=== PATIENT | male | born 1960 | race Caucasian/White ===

== ENCOUNTER 2019-03-15 16:12 | Observation (INO) ==
[2019-03-15 16:55] LABS: Bilirubin,Urine Negative (Negative); Blood,Urine Large (Negative); Clarity,Urine Cloudy (Clear); Color,Urine Dark Yellow (Yellow); Glucose,Urine (UA) Normal (Normal); Ketones,Urine Negative (Negative); Leukocyte Esterase,Urine Small (Negative); Nitrite,Urine Negative (Negative); Protein,Urine >=300 mg/dL (Neg-Trace); Specific Gravity,Urine 1.026 (1.010-1.025); Urobilinogen,Urine Normal (Normal)
[2019-03-15 16:57] LABS: Bacteria,Urine None Seen per hpf (None-Few); Hyaline Casts,Urine None Seen per lpf (None-Few); RBC,Urine TNTC per hpf (0-3); Squamous Epithelial Cell,Urine Many per lpf (None-Few); WBC,Urine 15-30 per hpf (0-3)
[2019-03-15 17:10] LABS: Renal Epithelial Cells,Urine Few per hpf (None-Few)
[2019-03-15 17:12] LABS: Basophils % 0.5 %; Eosinophils # 1.6 K/mcL (0.0-0.6); Eosinophils % 20.7 %; Hematocrit 35.2 % (37.5-50.1); Hemoglobin 10.7 g/dL (12.9-16.9); Immature Granulocytes % 0.4 % (0-4); Lymphocytes % 13.3 %; Mean Corpuscular HGB Conc 30.4 g/dL (31.6-35.5); Mean Corpuscular Hemoglobin 29.7 pg (28.0-33.3); Mean Corpuscular Volume 97.8 fL (83.0-100.0); Mean Platelet Volume 9.7 fL (9.4-12.4); Monocytes # 0.7 K/mcL (0.0-1.3); Monocytes % 8.5 %; Neutrophils # 4.3 K/mcL (1.6-8.9); Platelet Count 133 K/mcL (140-400); Segmented Neutrophils % 56.6 %; White Blood Count 7.6 K/mcL (4.3-11.1)
[2019-03-15 17:23] LABS: BUN/Creatinine Ratio 14 (6-26); Blood Urea Nitrogen 19 mg/dL (6-20); Calcium 8.7 mg/dL (8.6-10.3); Carbon Dioxide 23 mEq/L (23-29); Chloride 101 mEq/L (98-107); Glucose 109 mg/dL (70-105); Osmolality,Calculated 283 (280-300); Potassium 4.1 mEq/L (3.5-5.1); Sodium 135 mEq/L (136-145); eGFR For African Americans > 60 (> 60); eGFR For Non-African Americans 56 (> 60)
[2019-03-15 17:44] LABS: Platelet Estimate Slight Decrease (Normal)
[2019-03-15 18:11] LABS: Troponin I < 0.03 ng/mL (< 0.04)
[2019-03-15] MEDS ORDERED: Isovue-370 500 ML BOTTLE IVP ONE (18:34)
[2019-03-15] MEDS ORDERED: 0.9 % Sodium Chloride 1,000 ML IVC ONE (21:46)
[2019-03-16] MEDS ORDERED: Naloxone 0.4 MG/ML INJ IVP PRN (00:52)
[2019-03-16] MEDS ORDERED: Ondansetron 4 MG/2 ML VIAL IVP PRN (00:52)
[2019-03-16] MEDS ORDERED: D5% in Water 1,000 ML IVC PRN (00:56)
[2019-03-16] MEDS ORDERED: *HR* Dextrose 50 % in Water (Syg) 50 ML SYRINGE IVP PRN (00:56)
[2019-03-16] MEDS ORDERED: Dextrose Gel 15 GM/37.5 ML TUBE PO PRN ×2 (00:56)
[2019-03-16] MEDS ORDERED: 0.9 % Sodium Chloride 1,000 ML IVC SCH (01:00)
[2019-03-16] MEDS ORDERED: levoFLOXacin 750 MG/150 ML 750 MG/150 ML BAG IVPB ONE (01:00)
[2019-03-16] MEDS ORDERED: *HR* OxyCODONE Immed Rel 5 MG TABLET PO PRN (03:59)
[2019-03-16 04:51] LABS: Hematocrit 28.5 % (37.5-50.1); Mean Corpuscular HGB Conc 31.2 g/dL (31.6-35.5); Mean Corpuscular Hemoglobin 30.5 pg (28.0-33.3); Mean Corpuscular Volume 97.6 fL (83.0-100.0); Mean Platelet Volume 9.9 fL (9.4-12.4); Platelet Count 118 K/mcL (140-400); Red Blood Count 2.92 M/mcL (4.19-5.50); Red Cell Distribution Width 15.1 % (11.5-14.5); White Blood Count 5.8 K/mcL (4.3-11.1)
[2019-03-16 05:06] LABS: Hemoglobin 8.9 g/dL (12.9-16.9)
[2019-03-16 05:13] LABS: Alanine Aminotransferase 6 Units/L (7-52); Albumin 2.9 g/dL (3.5-5.7); Albumin/Globulin Ratio 0.9 (1.1-2.2); Alkaline Phosphatase 202 Units/L (34-104); Aspartate Amino Transferase 15 Units/L (13-39); BUN/Creatinine Ratio 14 (6-26); Bilirubin,Total 0.5 mg/dL (0.3-1.0); Blood Urea Nitrogen 16 mg/dL (6-20); Calcium 7.9 mg/dL (8.6-10.3); Carbon Dioxide 19 mEq/L (23-29); Chloride 103 mEq/L (98-107); Globulin 3.4 g/dL (2.4-3.5); Glucose 105 mg/dL (70-105); Osmolality,Calculated 278 (280-300); Potassium 3.9 mEq/L (3.5-5.1); Sodium 133 mEq/L (136-145); Total Protein 6.3 g/dL (6.4-8.9); eGFR For African Americans > 60 (> 60); eGFR For Non-African Americans > 60 (> 60)
[2019-03-16 06:02] LABS: Anisocytosis 1+ (Not Present); Eosinophils # 0.4 K/mcL (0.0-0.6); Hypochromasia Present (Not Present); Large Platelets Present (Not Present); Lymphocytes # 0.5 K/mcL (0.6-4.6); Monocytes # 0.2 K/mcL (0.0-1.3); Neutrophils # 4.8 K/mcL (1.6-8.9); Platelet Estimate Normal (Normal)
[2019-03-16] MEDS: Insulin LISPRO 300 UNITS/3 ML VIAL SQ SCH ×2 (07:46→12:09)
[2019-03-16] MEDS ORDERED: amLODIPine 5 MG TABLET PO SCH (09:00)
[2019-03-16] MEDS ORDERED: hydrALAZINE 25 MG TABLET PO SCH (09:00)
[2019-03-16] MEDS ORDERED: Cholecalciferol (D-3) 1,000 UNIT (25MCG) TABLET PO SCH (09:00)
[2019-03-16] MEDS ORDERED: Famotidine 20 MG TABLET PO SCH (09:00)
[2019-03-16] MEDS ORDERED: Aspirin Enteric Coated 81 MG Tablet PO SCH (09:00)
[2019-03-16] MEDS ORDERED: DilTIAZem CD (24hr) 120 MG CAP.ER.24H PO SCH (09:00)
[2019-03-16 10:25] VITALS: BP 127/82
== END 2019-03-16 17:27 | disposition home or self-care (01) ==
LOC: 3ANU 16:12 → EMEROOARM 16:12 → SUATTDRO 22:28 → 3ANU 23:36
PROVIDERS: ADMIT Pediatrics; ATTEND Internal Medicine

== ENCOUNTER 2019-05-23 14:38 | Inpatient (IN) ==
--- NOTE | 2019-05-23 15:34 | Emergency Department Note ---
Disposition Clinical Impression: Renal cell carcinoma Qualifiers: Laterality: left Qualified Code(s): C64.2 - Malignant neoplasm of left kidney, except renal pelvis Disposition: Admitted As Inpatient Condition: Fair Time of Disposition: 19:00 General Adult HPI - General Chief complaint: ED Recheck/Abnormal Lab/Rx Stated complaint: Toe Bleeding Time Seen by Provider: 05/23/19 15:32 Source: patient Limitations: no limitations Nursing Notes Reviewed: Yes Vital Signs Reviewed: Yes - History of Present Illness HPI Narrative: 58-year-old male presents emergency Department concern for right middle toe bleeding. Patient has renal cell carcinoma with metastasis to the skin. Reports that the lesion popped up recently and there was some bleeding from it. He was seen by his doctor who sent him to the fax machine operator who cauterized it. Sent the patient to the emergency department with need for removal of the lesion more morning. Reports that patient needs to have palliative care talk. Patient's states that there was no pulsatile blood, which is bleeding briskly earlier. No fevers and he has good sensation of his foot. Pain Scale: 4 - Related Data Home Medications Medication Instructions Recorded Confirmed Hydralazine HCl 50 mg PO BID 02/11/18 05/23/19 Metoprolol Tartrate [Lopressor] 50 mg PO BID 02/11/18 05/23/19 Ranitidine HCl [Acid Instructional Support Assistant] 150 mg PO DAILY 02/11/18 05/23/19 Simvastatin [Zocor] 40 mg PO HS 02/11/18 05/23/19 Levothyroxine Sodium [Levo-T] 150 mcg PO DAILY 03/15/19 05/23/19 dilTIAZem HCl [Diltiazem HCl] 120 mg PO DAILY 03/16/19 05/23/19 Calcium Carbonate/Vitamin D3 1 tab PO DAILY 05/09/19 05/23/19 [Calcium 600 + Vit D Tablet] Amlodipine Besylate 10 mg PO DAILY 05/23/19 05/23/19 Aspirin [Lo-Dose Aspirin EC] 81 mg PO DAILY 05/23/19 05/23/19 Furosemide [Lasix] 20 mg PO DAILY 05/23/19 05/23/19 Potassium Chloride [K-Tab ER] 20 meq PO DAILY 05/23/19 05/23/19 Allergies Allergy/AdvReac Type Severity Reaction Status Date / Time adhesive tape Allergy Rash Verified 05/23/19 20:51 Penicillins [PCN] Allergy Hives Verified 05/23/19 20:51 All systems ED: reviewed and negative except as stated. Review of Systems: As Per HPI Constitutional: Denies: fever Cardiovascular: Denies: chest pain Respiratory: Denies: dyspnea Gastrointestinal: Denies: abdominal pain, nausea, vomiting Genitourinary: Denies: dysuria Musculoskeletal: Reports: other (Right middle toe discomfort, bleeding) Neurological: Denies: numbness, paresthesias Past Medical History - Past Medical History Attestation: Yes The following information was validated with the patient. Medical history: Reports: cancer, diabetes, GERD, hyperlipidemia, hypertension, thyroid disease, other Surgical history: Reports: other Psychiatric history: Reports: no psych history - Social History Smoking Status: Never smoker Smokeless Tobacco Status: No Alcohol use: Reports: none Drug use: Reports: none Physical Exam - General Limitations: no limitations General appearance: alert, in no apparent distress - Head Head exam: normocephalic - Eye Eye exam: Present: EOMI - ENT ENT exam: mucous membranes moist - Neck Neck exam: Present: trachea midline - Chest Chest inspection: Present: symmetric chest wall rise - Respiratory Respiratory exam: Present: normal lung sounds bilaterally. Absent: respiratory distress, accessory muscle use - Cardiovascular Cardiovascular exam: Present: regular rate, normal rhythm, normal heart sounds - Abdominal Exam Abdominal exam: Present: soft, Non-Tender. Absent: distention, guarding, rebound, rigidity - Extremities Exam Extremities exam: Present: normal capillary refill, other (Patient with lesion of right toe, hemostasis controlled) - Back Exam Back exam: Present: full ROM - Neurological Exam Neurological exam: Present: alert, oriented X3 - Psychiatric Psychiatric exam: Present: normal affect, normal mood - Skin Skin exam: Present: warm, dry Course Vital Signs Temperature 97.8 F 05/23/19 14:41 Pulse Rate 68 05/23/19 14:41 Respiratory Rate 18 05/23/19 14:41 Blood Pressure 140/78 05/23/19 14:41 O2 Sat by Pulse Oximetry 99 05/23/19 14:41 Temperature 98.6 F 05/23/19 20:12 Pulse Rate 102 05/23/19 20:12 Respiratory Rate 14 05/23/19 20:12 Blood Pressure 114/70 05/23/19 20:12 O2 Sat by Pulse Oximetry 97 05/23/19 20:12 Oxygen Delivery Oxygen Delivery Room Air Medical Decision Making - MDM Narrative Medical decision making narrative: Procedure male presents emergency Department concern for lesion of right toe. Hemostasis controlled to the emergency department. We put Surgicel on it. Per podiatry request, patient labs were obtained and patient admitted to hospitalist. Creatinine mildly elevated. Patient is given some fluids. - Lab Data Result diagrams: 05/23/19 16:40 05/23/19 16:40 Lab Results 05/23/19 05/23/19 05/23/19 Range/Units 16:40 16:40 16:40 WBC 9.4 (4.3-11.1) K/mcL RBC 3.69 L (4.19-5.50) M/mcL Hgb 9.9 L (12.9-16.9) g/dL Hct 33.5 L (37.5-50.1) % MCV 90.8 (83.0-100.0) fL MCH 26.8 L (28.0-33.3) pg MCHC 29.6 L (31.6-35.5) g/dL RDW 17.2 H (11.5-14.5) % Plt Count 161 (140-400) K/mcL MPV 11.0 (9.4-12.4) fL PT 13.2 H (9.4-12.1) Seconds INR 1.2 APTT 38.2 H (26.0-36.0) Seconds Sodium 132 L (136-145) mEq/L Potassium 4.4 (3.5-5.1) mEq/L Chloride 98 (98-107) mEq/L Carbon Dioxide 24 (23-29) mEq/L BUN 16 (6-20) mg/dL Creatinine 1.55 H (0.70-1.30) mg/dL Est GFR ( Amer) 57 L (> 60) Est GFR (Non-Af Amer) 47 L (> 60) BUN/Creatinine Ratio 10 (6-26) Glucose 163 H (70-105) mg/dL Calculated Osmolality 279 L (280-300) Calcium 8.7 (8.6-10.3) mg/dL
--- NOTE | 2019-05-23 16:22 | Emergency Department Note ---
Disposition Clinical Impression: Renal cell carcinoma Qualifiers: Laterality: left Qualified Code(s): C64.2 - Malignant neoplasm of left kidney, except renal pelvis Disposition: Admitted As Inpatient Condition: Fair Time of Disposition: 15:30 General Adult HPI - General Chief complaint: ED Recheck/Abnormal Lab/Rx Stated complaint: Toe Bleeding Time Seen by Provider: 05/23/19 15:32 Source: patient Limitations: no limitations Nursing Notes Reviewed: Yes Vital Signs Reviewed: Yes - History of Present Illness Pain Scale: 4 - Related Data Home Medications Medication Instructions Recorded Confirmed Amlodipine Besylate 10 mg PO DAILY 02/11/18 05/23/19 Hydralazine HCl 50 mg PO BID 02/11/18 05/23/19 Metoprolol Tartrate [Lopressor] 50 mg PO BID 02/11/18 05/23/19 Ranitidine HCl [Acid Senior Quantity Surveyor] 150 mg PO QID 02/11/18 05/23/19 Simvastatin [Zocor] 40 mg PO QID 02/11/18 05/23/19 Levothyroxine Sodium [Levo-T] 150 mcg PO QID 03/15/19 05/23/19 dilTIAZem HCl [Diltiazem HCl] 120 mg PO QID 03/16/19 05/23/19 Ondansetron HCl [Zofran] 4 mg PO Q8HR PRN 04/18/19 05/23/19 Calcium Carbonate/Vitamin D3 1 each PO DAILY 05/09/19 05/23/19 [Calcium 600 + Vit D Tablet] Allergies Allergy/AdvReac Type Severity Reaction Status Date / Time adhesive tape Allergy Rash Verified 05/23/19 14:42 Penicillins [PCN] Allergy Hives Verified 05/23/19 14:42 Past Medical History - Past Medical History Medical history: Reports: cancer, diabetes, GERD, hyperlipidemia, hypertension, thyroid disease, other Surgical history: Reports: other Psychiatric history: Reports: no psych history - Social History Smoking Status: Never smoker Smokeless Tobacco Status: No Alcohol use: Reports: none Drug use: Reports: none Physical Exam - General Limitations: no limitations General appearance: alert, in no apparent distress Course Vital Signs Temperature 97.8 F 05/23/19 14:41 Pulse Rate 68 05/23/19 14:41 Respiratory Rate 18 05/23/19 14:41 Blood Pressure 140/78 05/23/19 14:41 O2 Sat by Pulse Oximetry 99 05/23/19 14:41 Temperature 97.8 F 05/23/19 14:41 Pulse Rate 94 05/23/19 15:45 Respiratory Rate 18 05/23/19 15:45 Blood Pressure 135/74 05/23/19 15:45 O2 Sat by Pulse Oximetry 97 05/23/19 15:45 Oxygen Delivery Oxygen Delivery Room Air Medical Decision Making - Lab Data Result diagrams: 05/23/19 16:40 05/23/19 16:40 Lab Results 05/23/19 05/23/19 05/23/19 Range/Units 16:40 16:40 16:40 WBC 9.4 (4.3-11.1) K/mcL RBC 3.69 L (4.19-5.50) M/mcL Hgb 9.9 L (12.9-16.9) g/dL Hct 33.5 L (37.5-50.1) % MCV 90.8 (83.0-100.0) fL MCH 26.8 L (28.0-33.3) pg MCHC 29.6 L (31.6-35.5) g/dL RDW 17.2 H (11.5-14.5) % Plt Count 161 (140-400) K/mcL MPV 11.0 (9.4-12.4) fL PT 13.2 H (9.4-12.1) Seconds INR 1.2 APTT 38.2 H (26.0-36.0) Seconds Sodium 132 L (136-145) mEq/L Potassium 4.4 (3.5-5.1) mEq/L Chloride 98 (98-107) mEq/L Carbon Dioxide 24 (23-29) mEq/L BUN 16 (6-20) mg/dL Creatinine 1.55 H (0.70-1.30) mg/dL Est GFR ( Amer) 57 L (> 60) Est GFR (Non-Af Amer) 47 L (> 60) BUN/Creatinine Ratio 10 (6-26) Glucose 163 H (70-105) mg/dL Calculated Osmolality 279 L (280-300) Calcium 8.7 (8.6-10.3) mg/dL Attestation Statement - Attestation Attestation: I examined this patient and my medical decision-making was reviewed with the Resident Physician. I agree with the documented findings, disposition and treatment plan as described except to the extent set forth below. Patient to the ED with a bleeding toe. Patient has cancer with multiple lesions throughout his body. Patient currently has a lesion on his right middle toe. He saw podiatry today. They sent him to his radiation oncologist to discuss radiation. They sent him here. On examination there is a large wound to the right middle toe that is not actively bleeding. Plan. Surgicel and a dressing applied. We will discuss with podiatry. Podiatry requesting admission for surgery TOmorrow. Labs pending. Admitted to medicine.
[2019-05-23 17:06] LABS: Hematocrit 33.5 % (37.5-50.1); Hemoglobin 9.9 g/dL (12.9-16.9); Mean Corpuscular HGB Conc 29.6 g/dL (31.6-35.5); Mean Corpuscular Hemoglobin 26.8 pg (28.0-33.3); Mean Corpuscular Volume 90.8 fL (83.0-100.0); Platelet Count 161 K/mcL (140-400); Red Blood Count 3.69 M/mcL (4.19-5.50); Red Cell Distribution Width 17.2 % (11.5-14.5); White Blood Count 9.4 K/mcL (4.3-11.1)
[2019-05-23 17:15] LABS: INR 1.2; Prothrombin Time 13.2 Seconds (9.4-12.1)
[2019-05-23 17:18] LABS: Activated Partial Thrombo Time 38.2 Seconds (26.0-36.0)
[2019-05-23 17:27] LABS: Calcium 8.7 mg/dL (8.6-10.3); Potassium 4.4 mEq/L (3.5-5.1)
[2019-05-23] MEDS ORDERED: 0.9 % Sodium Chloride 1,000 ML IVC ONE (18:14)
[2019-05-23] MEDS ORDERED: Naloxone 0.4 MG/ML INJ IVP PRN (23:01)
[2019-05-23] MEDS ORDERED: 0.9 % Sodium Chloride 1,000 ML IVC SCH (23:15)
--- NOTE | 2019-05-23 23:18 | Internal Med History&Physical ---
Date of Encounter: 05/23/19 Time of Encounter: 21:30 Internal Medicine - H&P: HPI Chief complaint: Right toe lesion Admitted From: Home Plans for Post Hospital Care: Home History of present illness: Mr. Myers is a 58 year old male with past medical history significant for renal cell carcinoma with metastasis with nephrectomy, hypertension, hyperlipidemia, A. fib, GERD, and thyroid disease who presents for right middle toe lesion with bleeding. Has history of developing lesions on his skin that profusely bleed secondary to his cancer metastasis. Some of which have been resolved with radiation. Presented to his PCP today for same and was sent to Podiatry office who sent him to Oncology office to see about having radiation performed. Oncology office advised him to come to ER and consulted Podiatry who agreed to see patient in consult in the a.m. for possible surgery. Patient states he first noticed the lesion on Thursday and has had intermittent bleeding since which became difficult to control so he went to his PCP. Currently denies any headache, numbness, tingling, chest pain, shortness of breath abdominal pain, bowel or bladder changes. Does report developing bilateral pitting lower extremity edema over past few days which is new for him and also reports shortness of breath above his baseline with exertion. Also reports having a known pleural effusion for which he has a thoracentesis planned for this week. Reports following regularly with his PCP and Oncology at [facility]. Currently is not receiving any chemotherapy or radiation but planning to resume soon. Past Med Surg Social Fam HX - Past Medical History Medical history: atrial fibrillation, cancer, GERD, hyperlipidemia, hypertension, thyroid disease, other Additional medical history: kidney, liver, lungs, brain, skin CA Psychiatric history: no psych history - Past Surgical History Surgical History: other Additional surgical history: (left)KIDNEY REMOVAL - Social History Smoking Status: Never smoker Smokeless Tobacco Status: No Alcohol use: none Drug use: none - Family History Mother Living Status: Hx Family Cardiac Disorders: Yes Hx Family Respiratory Disorders: Yes Hx Family Cancer: Yes Hx Family GI Disorders: No Hx Family Endocrine Disorder: Yes Hx Family Neuromuscular Disorders: No Hx Family Neurologic Disorders: No Hx Family HEENT Disorders: No Hx Family Autoimmune Disorders: No Internal Medicine - H&P: Meds Hydralazine HCl 50 mg PO BID 02/11/18 [History] Metoprolol Tartrate [Lopressor] 50 mg PO BID 02/11/18 [History] Ranitidine HCl [Acid Supervisor Train Operations] 150 mg PO DAILY 02/11/18 [History] Simvastatin [Zocor] 40 mg PO HS 02/11/18 [History] Levothyroxine Sodium [Levo-T] 150 mcg PO DAILY 03/15/19 [History] dilTIAZem HCl [Diltiazem HCl] 120 mg PO DAILY 03/16/19 [History] Calcium Carbonate/Vitamin D3 [Calcium 600 + Vit D Tablet] 1 tab PO DAILY 05/09/19 [History] Amlodipine Besylate 10 mg PO DAILY 05/23/19 [History] Aspirin [Lo-Dose Aspirin EC] 81 mg PO DAILY 05/23/19 [History] Furosemide [Lasix] 20 mg PO DAILY 05/23/19 [History] Potassium Chloride [K-Tab ER] 20 meq PO DAILY 05/23/19 [History] Allergy/AdvReac Type Severity Reaction Status Date / Time adhesive tape Allergy Rash Verified 05/23/19 20:51 Penicillins [PCN] Allergy Hives Verified 05/23/19 20:51 All Systems PM: A 10-system review of systems was performed and is negative for pertinent findings except as documented above in the HPI. - Constitutional Vitals: Temp Pulse Resp BP Pulse Ox 97.9 F 102 15 106/66 96 05/23/19 22:48 05/23/19 22:48 05/23/19 22:48 05/23/19 22:48 05/23/19 22:48 Exam: General: Alert and oriented. Calm in no distress. Skin:Normal color, no rash. Chronic lesions noted secondary to cancer. HEENT:M8ibbof equal, round and reactive. Cardiovascular:Heart sounds distant, no rubs, murmurs or gallops. No JVD. Pulse regular. Lungs:Breath sounds decreased, no wheezes or crackles. Abdomen:Soft, distended, non-tender, no rigidity. Large chronic hernia noted. Extremities:No deformity, tenderness, joint swelling, or clubbing. Bilateral 2+ pitting edema noted. Right toe dressing dry and intact, distal PMS intact. Neurological:Normal cognition and motor skills. Pulses:Carotid and radial pulses normal +2. Rest of the physical exam is non contributory. Internal Med - H&P Results - Labs CBC & Chem 7: 05/23/19 16:40 05/23/19 16:40 Labs: Short CBC 05/23/19 Range/Units 16:40 WBC 9.4 (4.3-11.1) K/mcL Hgb 9.9 L (12.9-16.9) g/dL Hct 33.5 L (37.5-50.1) % Plt Count 161 (140-400) K/mcL BMP 05/23/19 16:40 Sodium 132 L Potassium 4.4 Chloride 98 Carbon Dioxide 24 BUN 16 Creatinine 1.55 H Glucose 163 H Calcium 8.7 - Assessment and Plan (1) Skin lesion Current Visit: Yes Status: Acute Assessment and plan: Skin lesion of right middle toe that developed Thursday and has had intermittent bleeding since. Has history of developing similar lesions on his skin that profusely bleed secondary to his cancer metastasis, some of which that have been resolved with radiation. Presented to PCP today for same and was sent to Podiatry office who sent him to Oncology office to see about having radiation performed, Oncology office sent him to ER who consulted Podiatry and will see in a.m. for possible surgery, consult order placed. Bleeding currently controlled, dressing dry and intact. Echocardiogram and Cardiology consult ordered for surgical clearance given recently developed lower extremity edema and dyspnea on exertion above baseline. NPO at midnight. (2) Acute kidney injury Current Visit: Yes Status: Acute Assessment and plan: Creatinine up at 1.55 from 1.21, GFR 47 from >60, BUN continues to be WNL at 16. Possibly secondary to recently starting Lasix, hold for now. Gentle IVF hydration ordered. Repeat labs. Avoid nephrotoxins as able. Consult Nephrology if not improving. (3) Lower extremity edema Current Visit: Yes Status: Acute Assessment and plan: Reports recently developing pitting lower extremity edema and being started on lasix. Echocardiogram ordered. Cardiology consult ordered for surgical clearance. will need called in a.m. (4) Dyspnea on exertion Current Visit: Yes Status: Acute Assessment and plan: States this is chronic problem but has been worse than baseline over past few days. Has known pleural effusion for which he had planned thoracentesis scheduled this week and known metastasis to his lungs. Respiratory status currently stable, continue to monitor. Will order chest xray. Plan otherwise as stated above. (5) Decreased hemoglobin Current Visit: Yes Status: Acute Assessment and plan: Acute on chronic. Currently 9.9 from 10.9. Bleeding from toe lesion intermittently since Thursday. Repeat labs ordered. (6) Hyponatremia Current Visit: Yes Status: Acute Assessment and plan: Slightly decreased at 132. Receiving IVF's. Repeat labs ordered. (7) Metastatic renal cell carcinoma Current Visit: Yes Status: Chronic Assessment and plan: Renal cell carcinoma with metastasis with nephrectomy. Follows with [facility] Oncology. ER placed consult order for Oncology for any needs during admission. Qualifiers: Laterality: left Qualified Code(s): C64.2 - Malignant neoplasm of left kidney, except renal pelvis - Time Spent With Patient Total time spent is greater than 50% in coordination of care (as documented) at patient's floor/unit and/or counseling patient:
[2019-05-24 06:13] LABS: Basophils % 0.5 %; Eosinophils # 0.7 K/mcL (0.0-0.6); Eosinophils % 8.8 %; Hematocrit 31.7 % (37.5-50.1); Hemoglobin 9.4 g/dL (12.9-16.9); Immature Granulocytes % 1.4 % (0-4); Lymphocytes # 0.7 K/mcL (0.6-4.6); Lymphocytes % 8.8 %; Mean Corpuscular HGB Conc 29.7 g/dL (31.6-35.5); Mean Corpuscular Hemoglobin 26.2 pg (28.0-33.3); Mean Corpuscular Volume 88.3 fL (83.0-100.0); Mean Platelet Volume 10.4 fL (9.4-12.4); Monocytes # 0.8 K/mcL (0.0-1.3); Monocytes % 10.4 %; Neutrophils # 5.7 K/mcL (1.6-8.9); Platelet Count 148 K/mcL (140-400); Red Blood Count 3.59 M/mcL (4.19-5.50); Red Cell Distribution Width 17.3 % (11.5-14.5); Segmented Neutrophils % 70.1 %; White Blood Count 8.1 K/mcL (4.3-11.1)
[2019-05-24 06:26] LABS: Calcium 8.6 mg/dL (8.6-10.3); Potassium 4.4 mEq/L (3.5-5.1)
[2019-05-24] MEDS ORDERED: Famotidine 20 MG TABLET PO SCH (09:00)
[2019-05-24] MEDS ORDERED: NON-FORMULARY MEDICATION 1 EACH EACH (Calcium Carbonate/Vitamin D3 [Calcium 600 + Vit D Ta PO SCH (09:00)
[2019-05-24] MEDS ORDERED: amLODIPine 5 MG TABLET PO SCH (09:00)
[2019-05-24] MEDS ORDERED: Diltiazem CD (24hr) 120 MG CAPSULE PO SCH (09:00)
[2019-05-24] MEDS ORDERED: hydrALAZINE 25 MG TABLET PO SCH (09:00)
[2019-05-24] MEDS ORDERED: Cholecalciferol (D-3) 1,000 UNIT (25MCG) TABLET PO SCH (09:13)
[2019-05-24] MEDS ORDERED: Cefepime HCl 2,000 MG in Water for inj. (sterile) 20 ML IVP SCH (10:00)
--- NOTE | 2019-05-24 10:08 | Podiatry Consult Note ---
Date of Encounter: 05/24/19 Time of Encounter: 12:30 Assessment and Plan (1) Skin lesion Current visit: Yes Status: Chronic Metastatic skin lesion of the right foot toe #3 PLAN: Patient assessment complete at bedside Discussed surgical procedure in depth with patient and family. was also discussed in podiatry office yesterday Plan to remove lesion, incision and debridement and amputate toe if needed Verbalized understanding without concern Surgical procedure, recovery and possible complications covered, including but not limited to: Cleansed toe with saline Applied betadine, adaptic , 4x4 and kerlix bulk dressing Discussed plan with oncology and ID: Per imagining there is suggested osteomyelitis of the 3rd and 4th digits. It is unlikely this is osteomyelitis and more likely metastatic bone cancer. For this reason we will no be performing surgical intervention of the 4th toe at this time. Onc in agreement. If further concern will shift attention to 4th toe. This procedure of palliative in nature to stop bleeding and alleviate pain for patient. History of Present Illness HPI: Mr. Myers is a 58 year old male with a past medical history significant for renal cell carcinoma with metastasis with nephrectomy, hypertension, hyperlipidemia, A. fib, GERD, and thyroid disease who presents for right middle toe lesion with bleeding. Has history of developing lesions on his skin that profusely bleed secondary to his cancer metastasis. Some of which have been resolved with radiation. Patient presented to podiatry office yesterday 05/23/19 and was evaluated per , it was decided at that time for patient to go to the ED for admission and debridement of wound. Patient resting comfortably on arrival. Denies any pain. Dressing intact to toe #3 right foot. Family at bedside. Patient NPO. Pending surgery this evening with [employer]. Patient denies any fevers chills n/v or fls Past Med Surg Social Fam HX - Past Medical History Medical history: atrial fibrillation, cancer, GERD, hyperlipidemia, hypertension, thyroid disease, other Additional medical history: kidney, liver, lungs, brain, skin CA Psychiatric history: no psych history - Past Surgical History Surgical History: other Additional surgical history: (left)KIDNEY REMOVAL - Social History Smoking Status: Never smoker Smokeless Tobacco Status: No Alcohol use: none Drug use: none - Family History Mother Living Status: Hx Family Cardiac Disorders: Yes Hx Family Respiratory Disorders: Yes Hx Family Cancer: Yes Hx Family GI Disorders: No Hx Family Endocrine Disorder: Yes Hx Family Neuromuscular Disorders: No Hx Family Neurologic Disorders: No Hx Family HEENT Disorders: No Hx Family Autoimmune Disorders: No Medications and Allergies Hydralazine HCl 50 mg PO BID 02/11/18 [History] Metoprolol Tartrate [Lopressor] 50 mg PO BID 02/11/18 [History] Ranitidine HCl [Acid Toe Pounder] 150 mg PO DAILY 02/11/18 [History] Simvastatin [Zocor] 40 mg PO HS 02/11/18 [History] Levothyroxine Sodium [Levo-T] 150 mcg PO DAILY 03/15/19 [History] dilTIAZem HCl [Diltiazem HCl] 120 mg PO DAILY 03/16/19 [History] Calcium Carbonate/Vitamin D3 [Calcium 600 + Vit D Tablet] 1 tab PO DAILY 05/09/19 [History] Amlodipine Besylate 10 mg PO DAILY 05/23/19 [History] Aspirin [Lo-Dose Aspirin EC] 81 mg PO DAILY 05/23/19 [History] Furosemide [Lasix] 20 mg PO DAILY 05/23/19 [History] Potassium Chloride [K-Tab ER] 20 meq PO DAILY 05/23/19 [History] Allergy/AdvReac Type Severity Reaction Status Date / Time adhesive tape Allergy Rash Verified 05/23/19 20:51 Penicillins [PCN] Allergy Hives Verified 05/23/19 20:51 All Systems Reviewed: as per HPI Physical Exam - Constitutional Vitals: Temp Pulse Resp BP Pulse Ox 98.3 F 100 17 109/69 97 05/24/19 07:55 05/24/19 07:55 05/24/19 07:55 05/24/19 07:55 05/24/19 08:15 Exam: CONSTITUTIONAL: awake alert and oriented VASCULAR: faintly palpable pulses DP/PT, warm toes to tibia, cap refill < 3 seconds, no calf pain with manual compression NEUROLOGICAL: intact sensation to light touch MUSCULOSKELETAL: muscle strength 4/5 and equal bilaterally SKIN: Large hard nodular lesion noted to distal aspect toe 3 right. Encompasses distal bulb of toe. no bleeding noted at this time. Black discoloration of lesion related to placement of silver nitrate stick in office yesterday. No surrounding edema erythema or warmth. no odor. no purulent drainage. no appearance of active infection Results - Labs Result Diagrams: 05/24/19 05:10 05/24/19 05:10 Labs: Abnormal lab results RBC 3.59 M/mcL (4.19-5.50) L 05/24/19 05:10 Hgb 9.4 g/dL (12.9-16.9) L 05/24/19 05:10 Hct 31.7 % (37.5-50.1) L 05/24/19 05:10 MCH 26.2 pg (28.0-33.3) L 05/24/19 05:10 MCHC 29.7 g/dL (31.6-35.5) L 05/24/19 05:10 RDW 17.3 % (11.5-14.5) H 05/24/19 05:10 Eosinophils # 0.7 K/mcL (0.0-0.6) H 05/24/19 05:10 PT 13.2 Seconds (9.4-12.1) H 05/23/19 16:40 APTT 38.2 Seconds (26.0-36.0) H 05/23/19 16:40 Sodium 133 mEq/L (136-145) L 05/24/19 05:10 Creatinine 1.59 mg/dL (0.70-1.30) H 05/24/19 05:10 Est GFR ( Amer) 55 (> 60) L 05/24/19 05:10 Est GFR (Non-Af Amer) 45 (> 60) L 05/24/19 05:10 Glucose 150 mg/dL (70-105) H 05/24/19 05:10 POC Glucose 150 mg/dL (70-99) H 05/24/19 05:27 Calculated Osmolality 279 (280-300) L 05/23/19 16:40 H & H 05/23/19 05/24/19 Range/Units 16:40 05:10 Hgb 9.9 L 9.4 L (12.9-16.9) g/dL Hct 33.5 L 31.7 L (37.5-50.1) % All other labs normal. Consult Discharge Plan - Plan Referrals: Angelo Allen DO [Primary Care Provider] -
[2019-05-24 10:23] LABS: Bilirubin,Urine Negative (Negative); Blood,Urine Large (Negative); Clarity,Urine Cloudy (Clear); Color,Urine Yellow (Yellow); Glucose,Urine (UA) Normal (Normal); Ketones,Urine Negative (Negative); Leukocyte Esterase,Urine Small (Negative); Nitrite,Urine Negative (Negative); PH,Urine 6.5 pH Units (5.0-8.0); Protein,Urine 100 mg/dL (Neg-Trace); Specific Gravity,Urine 1.017 (1.010-1.025); Urobilinogen,Urine Normal (Normal)
[2019-05-24 10:24] LABS: Bacteria,Urine None Seen per hpf (None-Few); Hyaline Casts,Urine None Seen per lpf (None-Few); RBC,Urine TNTC per hpf (0-3); Squamous Epithelial Cell,Urine Many per lpf (None-Few); WBC,Urine 15-30 per hpf (0-3)
[2019-05-24 11:16] LABS: Albumin 2.9 g/dL (3.5-5.7); Albumin/Globulin Ratio 0.8 (1.1-2.2); Albumin/Globulin Ratio 0.9 (1.1-2.2); Bilirubin,Direct 0.2 mg/dL (0.0-0.2); Bilirubin,Indirect 0.4 mg/dL (0.0-1.2); Bilirubin,Total 0.6 mg/dL (0.3-1.0); Globulin 3.4 g/dL (2.4-3.5); Globulin 3.6 g/dL (2.4-3.5); Total Protein 6.4 g/dL (6.4-8.9); Total Protein 6.5 g/dL (6.4-8.9)
--- NOTE | 2019-05-24 11:18 | Infectious Disease Consult ---
Infectious Disease-Consult - Encounter Date/Time Date of Encounter: 05/24/19 Time of Encounter: 11:05 - Data of Consult Patient: known to practice within the last 3 years Reason for consult: "possible foot OM" Consult date: 05/24/19 Requesting Physician: Maricarmen Boyer Primary Care Provider: Angelo Allen DO - HPI HPI: MR. Myers is a 58-year-old male with past medical history of renal cell carcinoma with metastases to the brain, skin, bone, and lung status post nephrectomy, diabetes, GERD, hyperlipidemia, hypertension, and A. fib. The patient was admitted to the hospital 05/23/19 for renal cell carcinoma. We are consulted 05/24/19 for further workup and treatment recommendations for possible osteo-myelitis of the right third and fourth toes. Briefly, the patient is a 58-year-old male with past medical history as stated above. The patient presented to the emergency department on the day of admission with complaints of a right third toe ulceration that has been bleeding since onset of Thursday. He saw his PCP in the office yesterday who referred him to podiatry who then referred him to radiation oncology who then referred him to the ER. Upon arrival, he was afebrile and hemodynamically stable. His white blood cell count was normal. Renal function was consistent with an acute kidney injury. The ER staff was able to get the bleeding to stop and he was admitted to the hospital for further evaluation. Since admission, the patient has had some tachycardia. His white blood cell cou nt has remained normal and he has been afebrile. Urinalysis appeared contaminated. Her right foot x-ray that shows lucent changes involving the tuft of the distal pharynx of the third and fourth digits concerning for osteomyelitis. Podiatry's been consulted. He has had a chest x-ray that shows finding consistent with left upper lobe pneumonia and cardiomegaly without overt failure. Currently, he is on cefepime, Flagyl, and vancomycin. We have been asked to evaluate and make further recommendations. During my exam today, the patient states that he had abrupt onset of an ulceration to the distal portion of the right third toe on Thursday and started to bleed. He denies any previous ulcer. He denies any fevers, chills, rigors. Denies any chest pain, states he has been more short of breath and had a cough for the last month. Denies nausea, vomiting, diarrhea, constipation. Denies ab dominal pain or urinary complaints. Denies oral thrush or skin rashes. States he has multiple subcutaneous lesions secondary to metastatic renal cell carcinoma. He was evaluated by palliative care during his hospitalization in March and wanted to go home and resume treatment. The patient was at home alone. He has several siblings that assist him with his care. He denies tobacco, alcohol, illicit drug use. She does not work outside home. He does have a dog, but denies any bites or scratches. Denies any chronic infectious diseases. Denies any recent travel outside the [facility]. - ROS Review of Systems: All systems reviewed and no additional remarkable complaints except as stated. - Results CBC & Chem 7: 05/25/19 05:18 05/25/19 05:18 - Exam Vitals: Temp Pulse Resp BP Pulse Ox 98.3 F 100 17 109/69 97 05/24/19 07:55 05/24/19 07:55 05/24/19 07:55 05/24/19 07:55 05/24/19 08:15 Exam: Head: Atraumatic, normal inspection, normocephalic. Metastatic lesion noted to the middle of the forehead. Eye: EOMI, PERRLA, no scleral icterus noted. ENT: Mucous membranes moist. No odontogenic infection noted. Neck: Normal inspection, no meningismus. Metastatic lesion noted to the anterior neck. Respiratory: Clear to auscultation. No rales, respiratory distress, rhonchi, or wheezes noted. Cardiovascular: Regular rate and irregular rhythm, S1 and S2 audible. No murmurs, rubs, or gallops. GI: Soft, obese, normal bowel sounds. Large hernia admitted to the upper left abdomen. Metastatic skin lesions noted overlying the hernia site. Extremities:No joint swelling, pedal edema, or tenderness noted. Right foot third and fourth toe dressing clean, dry, and intact. No erythema, warmth, or tenderness noted. Back: Normal inspection. No vertebral tenderness noted. Metastatic skin lesions 2 noted to the back. Neurological: Alert, oriented 3, no focal deficits. Psychiatric: normal affect, normal mood. Skin: Dry, intact, warm. Normal color. No rashes. Hydralazine HCl 50 mg PO BID 02/11/18 [History] Metoprolol Tartrate [Lopressor] 50 mg PO BID 02/11/18 [History] Ranitidine HCl [Acid Skiver Hand] 150 mg PO DAILY 02/11/18 [History] Simvastatin [Zocor] 40 mg PO HS 02/11/18 [History] Levothyroxine Sodium [Levo-T] 150 mcg PO DAILY 03/15/19 [History] dilTIAZem HCl [Diltiazem HCl] 120 mg PO DAILY 03/16/19 [History] Calcium Carbonate/Vitamin D3 [Calcium 600 + Vit D Tablet] 1 tab PO DAILY 05/09/19 [History] Amlodipine Besylate 10 mg PO DAILY 05/23/19 [History] Aspirin [Lo-Dose Aspirin EC] 81 mg PO DAILY 05/23/19 [History] Furosemide [Lasix] 20 mg PO DAILY 05/23/19 [History] Potassium Chloride [K-Tab ER] 20 meq PO DAILY 05/23/19 [History] Allergy/AdvReac Type Severity Reaction Status Date / Time adhesive tape Allergy Rash Verified 05/23/19 20:51 Penicillins [PCN] Allergy Hives Verified 05/23/19 20:51 - Assessment and Plan (1) Toe ulcer Current Visit: Yes Status: Acute Location: Right 3rd toe. Likely secondary to renal cell mets. Has been bleeding since onset on Thursday. X-ray shows lucent changes involving the tuft of the distal phalanx of the 3rd and 4th digits concerning for OM. Podiatry consult pending. Discussed with the Podiatry team who is planning to take the patient to the OR to debride the 3rd toe to try to get the bleeding to stop. Feels that xray changes are likely secondary to metastatic disease and not osteomyelitis. ESR and CRP pending, but will likely be elevated due to malignancy. Qualifiers: Laterality: right Non-pressure ulcer stage: limited to breakdown of skin Qualified Code(s): L97.511 - Non-pressure chronic ulcer of other part of right foot limited to breakdown of skin SNOMED Code(s): 424100956 (2) Pneumonia Current Visit: No Status: Acute Location: [facility]. Causative organism: Unclear. CXR shows findings concerning for PNA in the RADH[facility]. The patient states he does sometimes choke when he eats, so aspiration is on the differential. No URI symptoms. Currently on Vanc, cefepime, and flagyl. Qualifiers: Pneumonia type: due to unspecified organism Laterality: unspecified later ality Lung location: unspecified part of lung Qualified Code(s): J18.9 - Pneumonia, unspecified organism SNOMED Code(s): 468344727 (3) Acute kidney injury Current Visit: Yes Status: Acute Etiology unclear. Continue to trend. Further workup and management per the primary team. SNOMED Code(s): 78791385, 11226939 (4) Metastatic renal cell carcinoma Current Visit: Yes Status: Chronic Diagnosed in [address] of the abdomen and pelvis showed a large mass arising from the left kidney. Status post left kidney total nephrectomy 03/18/16. Developed mediastina adenopathy. Probable biopsy of lymphadenopathy was nondiagnostic. Studies in February 2017 showed increased in the size of the right paratracheal lymph node and increasing left lower lobe pulmonary nodule right lower lobe pulmonary nodule and a right apical lung nodule as well as a soft tissue nodule in the left periaortic region increased in size with concern for progressive metastatic CA. He started pazopanib--02/28, subsequently, keytruda 05/31. Then he started cabozantinib He restarted cabozantinib 20 mg daily dose on 09/2017. He developed metastatic bony lesions, increase in hilar mass-s/p RT to both sacrum and rt hilum. Started everlimus/lenvatinib 12/31-03/02. Relapsed at multiple cutaneous sitess. MRI brain 03/22/19. Bilateral tiny cerebellar tiny lesions, fullness in sella. Started on nivolumab/ipilumab 03/02-current, and s/p RT to scalp lesions and nasal/sinus--due to bleeding. Qualifiers: Laterality: left Qualified Code(s): C64.2 - Malignant neoplasm of left kidney, except renal pelvis SNOMED Code(s): 833911962 (5) Skin lesion Current Visit: Yes Status: Chronic Multiple skin lesions due to mets. SNOMED Code(s): 40648367 (6) Status post nephrectomy Current Visit: No Status: Acute SNOMED Code(s): 517877794, 024547479 (7) Diabetes Current Visit: No Status: Chronic Qualifiers: Diabetes mellitus type: type 2 Diabetes mellitus oil heaterman insulin use: without jail use Diabetes mellitus complication status: without complication Qualified Code(s): E11.9 - Type 2 diabetes mellitus without complications SNOMED Code(s): 71715515 - Recommendations Recommendations: Get blood cultures x 2 sets. Check strep pneumo and legionella UATs. Send sputum for culture if the patient is able to provide an adequate specimen. Check MRSA nasal screen before Vanc is given. Surgical clearance per the cardiology and pulmonogy teams. Await recommendations from the Podiatry team. Await recommendations from the Hem/Onc team. Continue Vancomycin IV. Pharmacy to dose. Goal trough ~15. Continue cefepime 2 grams IV Q12H. Continue flagyl 500mg IV TID, but can transition to PO when the patient is able to take PO. Duration of treatment depends on the clinical picture. Monitor renal function and for drug toxicity and dose-adjust antibiotics. Past Med Surg Social Fam HX - Past Medical History Attestation: Yes The following information was validated with the patient. Source: patient, old records reviewed, obtained from family, nursing notes reviewed Medical history: atrial fibrillation, cancer, GERD, hyperlipidemia, hypertensi on, thyroid disease, other Additional medical history: kidney, liver, lungs, brain, skin CA Psychiatric history: no psych history - Past Surgical History Surgical History: other Additional surgical history: (left)KIDNEY REMOVAL - Social History Smoking Status: Never smoker Smokeless Tobacco Status: No Alcohol use: none Drug use: none Occupational status: disabled Current living situation: Home - Independent Activity Level: Independent ambulation Recent Out of Country Travel Within the Last 8 Weeks: No Exposure or Possible Exposure to Illness During Travel: No - Family History Mother Living Status: Hx Family Cardiac Disorders: Yes Hx Family Respiratory Disorders: Yes Hx Family Cancer: Yes Hx Family GI Disorders: No Hx Family Endocrine Disorder: Yes Hx Family Neuromuscular Disorders: No Hx Family Neurologic Disorders: No Hx Family HEENT Disorders: No Hx Family Autoimmune Disorders: No Consult Discharge Plan - Plan Referrals: Angelo Allen DO [Primary Care Provider] - - Attending Attestation I have personally performed a face to face evaluation on this patient. I have reviewed and agree with the care plan. This is an addendum to original report dictated by Elyse Lopez CNP. Please refer to Elyse's note for full detail. Agree with above history of present illness, review of system and physical exam findings. Assessment and plan: 1.Toe ulcer 2.HCAP left upper lobe causative organism not clear concern for aspiration 3.Acute kidney injury 4.Metastatic renal cell carcinoma 5.Status post nephrectomy 6.Diabetes mellitus type 2 Recommendations: Blood cultures 2 Check urine streptococcal and legionella antigen Get MRSA screen Continue vancomycin with goal vancomycin trough around 15 Continue cefepime 2 g IV every 12 hours Continue Flagyl IV 500 mg 3 times a day Duration of treatment depends on clinical picture Monitor labs and for drug toxicity
--- NOTE | 2019-05-24 11:22 | Rad Onc Dictation ---
Radiation Oncology Dictation Date of Service: 05/24/19 - Progress Note Comments: Patient has had repeated subcutaneous and hemorrhagic metastases from renal cell carcinoma that have resolved with radiation therapy. New hemorrhagic metastasis is on toe. Radiation to the toe is not typically recommended, particularly if metastatic lesion involves the bone. Foot x-ray from this morning reviewed. I do not agree with osteomyelitis reading. This is most likely a metastatic lesion causing a lytic lesion in the bone that have occurred throughout the subcutaneous tissues in the body. Patient and sister and I have discussed toe amputation for bleeding and symptoms followed by Hospice care.
[2019-05-24] MEDS: MetroNIDAZOLE 500 MG/100 ML 500 MG/100 ML BAG IVPB SCH ×2 (11:37→16:08)
--- NOTE | 2019-05-24 12:11 | Cardiology Consult Note ---
<Musa Alba - Last Filed: 05/24/19 14:08> Date of Encounter: 05/24/19 Time of Encounter: 12:40 Assessment and Plan (1) Toe ulcer Current Visit: Yes Status: Acute 1. Right distal phalanx 3rd and 4th digits concerning for osteomyelitis vs. h emorrhagic subcutaneous metastases. Podiatry following and apparent plans for surgery this pm. Qualifiers: Laterality: right Non-pressure ulcer stage: limited to breakdown of skin Qualified Code(s): L97.511 - Non-pressure chronic ulcer of other part of right foot limited to breakdown of skin (2) Preop cardiovascular exam Current Visit: Yes Status: Acute 1. Clinically stable, denies chest pain, SOB, no known hx of CAD. 2. EKG appears ordered. However, not completed. Will order stat since surgery may be this evening. 3. Echo completed; LVEF 65%. Mild left ventricular diastolic dysfunction. Normal right ventricular structure and function. Mild tricuspid regurgitation. Unable to estimate RVSP due to lack of IVC visualization. NSWMA. Awaiting ECG, assuming no significamt findings, anticipate can be risk stratified as low risk from a cardiac standpoint-- will review and discuss with Dr. Gomez. (3) PAF (paroxysmal atrial fibrillation) Current Visit: Yes Status: Acute 1. Hx of PAF, not on AC. Currently SR on tele and exam. 2. CHADS2-VASC = 2. HX of A-fib; current telemetry [address] 24HR 101. Previously on ASA only-- seen by Dr. Aron Howard (EP). 3. Rec to f/u/re-establish with Cardiology as outpatient. Discussion w patient/family: The assessment and plan as outlined above was discussed with the patient and/or family members who expressed understanding and agreement. All questions were answered. Thank you for involving us in the care of your patient. Please call with any questions. History of Present Illness Consult date: 05/24/19 Consult reason: Cardiac clearance Chief complaint: Right toe bleeding History of present illness: Mr. Myers is a 58 year-old male PMH of renal cell carcinoma with metastases to the brain, skin, bone, and lung s/p nephrectomy, diabetes, GERD, HLD, HTN, and A-fib. Previous multiple hemorrhagic subcutaneous metastases from renal cell carcinoma resolved with radiation therapy. Presents with new hemorrhagic metastasis is on right foot toes; radiation not recommended. Possibly metastatic lesion vs. osteomyelitis. Discussion between patient and sister along with r adiation oncology discussed toe amputation for bleeding symptoms to follow with hospice care. Cardiology consulted for risk stratification prior to possible surgery. Denies headache, chest pain, SOB, palpitations, n/v, n/t, abdominal pain, bowel or bladder changes. Last seen by Dr. Aron Howard with cardiology in 2016 for PAF; not on AC. Past Med Surg Social Fam HX - Past Medical History Attestation: Yes The following information was validated with the patient. Source: patient, old records reviewed Medical history: atrial fibrillation, cancer, GERD, hyperlipidemia, hyp ertension, thyroid disease, other Additional medical history: kidney, liver, lungs, brain, skin CA Psychiatric history: no psych history - Past Surgical History Surgical History: other Additional surgical history: (left)KIDNEY REMOVAL - Social History Smoking Status: Never smoker Smokeless Tobacco Status: No Alcohol use: none Drug use: none - Family History Mother Living Status: Hx Family Cardiac Disorders: Yes Hx Family Respiratory Disorders: Yes Hx Family Cancer: Yes Hx Family GI Disorders: No Hx Family Endocrine Disorder: Yes Hx Family Neuromuscular Disorders: No Hx Family Neurologic Disorders: No Hx Family HEENT Disorders: No Hx Family Autoimmune Disorders: No Medications and Allergies Hydralazine HCl 50 mg PO BID 02/11/18 [History] Metoprolol Tartrate [Lopressor] 50 mg PO BID 02/11/18 [History] Ranitidine HCl [Acid Python Web Developer] 150 mg PO DAILY 02/11/18 [History] Simvastatin [Zocor] 40 mg PO HS 02/11/18 [History] Levothyroxine Sodium [Levo-T] 150 mcg PO DAILY 03/15/19 [History] dilTIAZem HCl [Diltiazem HCl] 120 mg PO DAILY 03/16/19 [History] Calcium Carbonate/Vitamin D3 [Calcium 600 + Vit D Tablet] 1 tab PO DAILY 05/09/19 [History] Amlodipine Besylate 10 mg PO DAILY 05/23/19 [History] Aspirin [Lo-Dose Aspirin EC] 81 mg PO DAILY 05/23/19 [History] Furosemide [Lasix] 20 mg PO DAILY 05/23/19 [History] Potassium Chloride [K-Tab ER] 20 meq PO DAILY 05/23/19 [History] Allergy/AdvReac Type Severity Reaction Status Date / Time adhesive tape Allergy Rash Verified 05/23/19 20:51 Penicillins [PCN] Allergy Hives Verified 05/23/19 20:51 All Systems Review: The remainder of the systems were reviewed and are negative - Cardiovascular Cardiovascular: as per HPI Physical Examination Vital Signs, Last 4 Hours Pulse Ox 05/24/19 08:15 97 General: No Apparent Distress HEENT: Atraumatic, Normocephaly, Mucus Membranes Moist Neck: No JVD, Normal carotid pulses Cardiac: Reg Rate and Rhythm, Normal S1 and S2, No Murmur Lungs: Other (DIminished left posterior and anterior lung sounds) Neuro: Alert and responsive, No focal deficits noted Abdomen: Soft, Non-Tender Skin: No rashes noted on visualized skin, Other ( hemorrhagic subcutaneous metastases right toes; multiple echymosis r/t subcutaneous metastases) Musculoskeletal: No Chest Wall Tenderness Extremities: No Clubbing, No Cyanosis, No Edema, Normal Pulses Results 05/24/19 05:10 05/24/19 05:10 Lab Results Laboratory Tests 05/24/19 05/24/19 05/24/19 05:10 05:10 10:21 Hgb 9.4 L Hct 31.7 L Plt Count 148 BUN 17 Creatinine 1.59 H Est GFR (Non-Af Amer) 45 L AST 11 L ALT 5 L Alkaline Phosphatase 210 H ITS Impressions Foot X-Ray 05/24/19 05:15 IMPRESSION: Lucent changes involving the tuft of the distal phalanx of the 3rd and 4th digits concerning for osteomyelitis. D/ / Lobito Butler MD / Lobito Butler MD Interpreting Provider: Lobito Butler MD Echocardiogram 05/24/19 08:00 Impressions: LVEF 65%. Mild left ventricular diastolic dysfunction. Normal right ventricular structure and function. Mild tricuspid regurgitation. Unable to estimate RVSP due to lack of IVC visualization. Left Ventricular Wall Motion: Rest Echo Findings All wall segments showed normal motion. Chest X-Ray 05/24/19 23:56 IMPRESSION: 1. Left upper lobe pneumonia. Follow-up to resolution is recommended. 2. Cardiomegaly without overt failure. D/ / Balwinder Mejía MD / Balwinder Mejía MD Interpreting Provider: Balwinder Mejía MD Active Medications Amlodipine Besylate (Norvasc) 10 mg PO DAILY [facility] Stop: 11/23/19 09:01 Last Admin: 05/24/19 09:22 Dose: 10 mg Documented by: Calcium Carbonate (Tums) 500 mg PO DAILY [facility]; Protocol Stop: 11/23/19 09:14 Last Admin: 05/24/19 09:24 Dose: 500 mg Documented by: Diltiazem HCl (Cardizem Cd) 120 mg PO DAILY [facility] Stop: 11/23/19 09:01 Last Admin: 05/24/19 09:22 Dose: 120 mg Documented by: Famotidine (Pepcid) 20 mg PO DAILY [facility] Stop: 11/23/19 09:01 Last Admin: 05/24/19 09:23 Dose: 20 mg Documented by: Hydralazine HCl (Hydralazine) 50 mg PO BID [facility] Stop: 11/23/19 09:01 Last Admin: 05/24/19 09:22 Dose: 50 mg Documented by: Cefepime HCl 2,000 mg/ Sterile (Water) 20 mls @ 300 mls/hr IVP Q12HR [facility] Stop: 11/23/19 10:01 Last Infusion: 05/24/19 11:41 Dose: Infused Documented by: Metronidazole (Flagyl Premix 500 Mg/100 Ml) 500 mg in 100 mls @ 100 mls/hr IVPB Q8HR [facility] Stop: 11/23/19 10:01 Last Infusion: 05/24/19 12:29 Dose: Infused Documented by: Vancomycin HCl 1,500 mg/ (Sodium Chloride) 250 mls @ 166.67 mls/hr IVPB Q24H [facility] Stop: 11/23/19 11:01 Last Admin: 05/24/19 12:25 Dose: 166.7 mls/hr Documented by: Levothyroxine Sodium (Synthroid) 150 mcg PO 0630 [facility] Stop: 11/23/19 09:01 Last Admin: 05/24/19 09:25 Dose: 150 mcg Documented by: Metoprolol Tartrate (Lopressor) 50 mg PO BID [facility] Stop: 11/23/19 09:01 Last Admin: 05/24/19 09:23 Dose: 50 mg Documented by: Naloxone HCl (Narcan) 0.4 mg IVP Q2MPRN PRN PRN Reason: SEE COMMENTS Stop: 11/22/19 23:02 Simvastatin (Zocor) 40 mg PO HS [facility]; Protocol Stop: 11/23/19 21:01 Vitamin D (Vitamin D) 1,000 unit PO DAILY [facility] Stop: 11/23/19 09:14 Last Admin: 05/24/19 09:25 Dose: 1,000 unit Documented by: - Imaging and Cardiology Chest Xray: report reviewed Echo: report reviewed - EKG Interpretation EKG results cardiology: other (ordered) Consult Discharge Plan - Plan Referrals: Angelo Allen DO [Primary Care Provider] - CHADS2-VASC Score - Score Age: Less than 65 Sex: Male CHF History: No Hypertension history: Yes Stroke/TIA/Thromboembolism Hx: No Vascular disease history: No Diabetes history: Yes Score: 2 HAS-BLED Score - Score Bleeding: Prior major bleeding or predisposition to bleeding Medication usage predisposing to bleeding: Antiplatelet agents, NSAIDs, Anticoagulants Score: 2 <Arben Gomez P - Last Filed: 05/24/19 15:00> Date of Encounter: 05/24/19 - Attending Attestation Case reviewed and discussed with nurse practitioner. EKG present and reviewed showing sinus rhythm. No acute ischemic changes. Perhaps slow R-wave progression in the early precordial leads. No specific contraindications to proceeding with needed surgery. The surgical procedure itself is low risk. The patient is a lower risk from a cardiovascular perspective but certainly his multiple comorbidities are significant overall general medical risk issues. These are being addressed separately from the cardiovascular consultation. Assessment and Plan Discussion w patient/family: The assessment and plan as outlined above was discussed with the patient and/or family members who expressed understanding and agreement. All questions were answered. Thank you for involving us in the care of your patient. Please call with any questions. History of Present Illness History of present illness: Mr. Myers is a 58 year old male All Systems Review: The remainder of the systems were reviewed and are negative Physical Examination Vital Signs, Last 4 Hours Temp Pulse Resp BP Pulse Ox 05/24/19 14:20 97.6 F 92 18 120/74 97 05/24/19 12:32 98.0 F 80 18 116/73 96 Results 05/24/19 05:10 05/24/19 05:10 Lab Results 05/23/19 05/23/19 05/23/19 16:40 16:40 16:40 WBC 9.4 Hgb 9.9 L Hct 33.5 L Plt Count 161 INR 1.2 APTT 38.2 H Sodium 132 L Potassium 4.4 Chloride 98 Carbon Dioxide 24 BUN 16 Creatinine 1.55 H Glucose 163 H Calcium 8.7 Total Bilirubin AST ALT Alkaline Phosphatase 05/24/19 05/24/19 05/24/19 05:10 05:10 10:21 WBC 8.1 Hgb 9.4 L Hct 31.7 L Plt Count 148 INR APTT Sodium 133 L Potassium 4.4 Chloride 101 Carbon Dioxide 23 BUN 17 Creatinine 1.59 H Glucose 150 H Calcium 8.6 Total Bilirubin 0.6 AST 11 L ALT 5 L Alkaline Phosphatase 210 H 05/24/19 13:15 WBC Hgb Hct Plt Count INR 1.2 APTT Sodium Potassium Chloride Carbon Dioxide BUN Creatinine Glucose Calcium Total Bilirubin AST ALT Alkaline Phosphatase
--- NOTE | 2019-05-24 13:28 | Oncology Inp Consult Note ---
Date of Encounter: 05/24/19 Time of Encounter: 12:00 Assessment and Plan (1) Metastatic cancer Status: Acute Assessment and plan: Patient with diagnosis of clear cell renal cell carcinoma, status post nephrectomy, multiple therapies with pazopanib Keytruda, cabozantinib lenvatinib everolimus and subsequently nivolumab/ipilumab, palliative radiation therapy to brain sacrum and multiple cutaneous metastatic disease. He is also on xgeva for bony disease. Currently denies pain Due to bleeding from metastatic disease in the toe, he is being offered palliative amputation, podiatry bedside discussing risk and benefits with patient. Imaging changes likely secondary to metastatic disease, than infection. Hospice is being planned as outpatient after above Rx. Not a candidate for RT per DR Ulloa's notes. Due to wound healing further systemic therapy will be held. Discussed plan with podiatry SCRAP BREAKER bedside, patient, sisters. - Data of Consult Requesting Physician: Maricarmen Boyer Primary Care Provider: Angelo Allen DO - Consult Narrative Reason for consult: renal ca, bleeding toe metastasis History of present illness: 58-year-old male with a diagnosis of renal cell carcinoma status post left nephrectomy in 2016, developed metastatic disease in imaging studies in the mediastinum, treated initially with pazopanib, immunotherapy, pembrolizumab with progression noted in subsequent scans, patient was seen at [facility] and further treatment was switched to cabozantinib. Upon progression he had received multiple combinations-everolimus/lenvatinib, nivo/ipilumab combination with refractory cutaneous mets, s/p palliative RT to multiple sites. He has bony/calvarial mets and small brain metastatic disease as well Recently seen in clinic when he reported trauma to foot and bleeding. He has progressed systemically with new effusion, mediatinal adenopath and subcut metastatic disease as well Past Med Surg Social Fam HX - Past Medical History Medical history: atrial fibrillation, cancer, GERD, hyperlipidemia, hypertension, thyroid disease, other Additional medical history: kidney, liver, lungs, brain, skin CA Psychiatric history: no psych history - Past Surgical History Surgical History: other Additional surgical history: (left)KIDNEY REMOVAL - Social History Smoking Status: Never smoker Smokeless Tobacco Status: No Alcohol use: none Drug use: none - Family History Mother Living Status: Hx Family Cardiac Disorders: Yes Hx Family Respiratory Disorders: Yes Hx Family Cancer: Yes Hx Family GI Disorders: No Hx Family Endocrine Disorder: Yes Hx Family Neuromuscular Disorders: No Hx Family Neurologic Disorders: No Hx Family HEENT Disorders: No Hx Family Autoimmune Disorders: No Medications and Allergies Hydralazine HCl 50 mg PO BID 02/11/18 [History] Metoprolol Tartrate [Lopressor] 50 mg PO BID 02/11/18 [History] Ranitidine HCl [Acid Rehabilitation Services Counselor] 150 mg PO DAILY 02/11/18 [History] Simvastatin [Zocor] 40 mg PO HS 02/11/18 [History] Levothyroxine Sodium [Levo-T] 150 mcg PO DAILY 03/15/19 [History] dilTIAZem HCl [Diltiazem HCl] 120 mg PO DAILY 03/16/19 [History] Calcium Carbonate/Vitamin D3 [Calcium 600 + Vit D Tablet] 1 tab PO DAILY 05/09/19 [History] Amlodipine Besylate 10 mg PO DAILY 05/23/19 [History] Aspirin [Lo-Dose Aspirin EC] 81 mg PO DAILY 05/23/19 [History] Furosemide [Lasix] 20 mg PO DAILY 05/23/19 [History] Potassium Chloride [K-Tab ER] 20 meq PO DAILY 05/23/19 [History] Allergy/AdvReac Type Severity Reaction Status Date / Time adhesive tape Allergy Rash Verified 05/23/19 20:51 Penicillins [PCN] Allergy Hives Verified 05/23/19 20:51 Constitutional: Present: fatigue Additional comments: denies CP Additional comments: SOB with exertion Additional comments: denies abd pain or change in BM Additional comments: hx hematuria Additional comments: toe bleeding lytic bone findings Additional comments: denied headaches Additional comments: bleeding at cut metastatic sites Oncology - Exam - Constitutional General appearance: no acute distress, obese - Head Head exam: Present: atraumatic, normal inspection - Eye Eye exam: Present: sclera anicteric - ENT ENT exam: Present: mucous membranes dry - Neck Neck exam: Present: full ROM - Respiratory Additional comments: decreased ae - Cardiovascular Cardiovascular exam: Present: +S1, +S2 - GI/Abdominal GI/Abdominal exam: Present: soft Additional comments: no tenderness - Extremities Exam Extremities exam: Present: pedal edema Additional comments: rt toe metastatic lesion--currently not bleeding dressing being changed - Neurological Exam Neurological exam: Present: alert, CN II-XII intact, oriented X3, no focal deficits - Psychiatric Psychiatric exam: Present: normal affect - Skin Skin exam: Present: dry Additional comments: forehead lesion and toe lesions Oncology Inpatient Results CT imaging. Rt foot Xrays reviewed Consult Discharge Plan - Plan Referrals: Angelo Allen DO [Primary Care Provider] - Inpatient Charges Provider: Dr. Zeke Cohen Consult - Inpatient: [id number]
[2019-05-24 13:40] LABS: INR 1.2; Prothrombin Time 13.7 Seconds (9.4-12.1)
--- NOTE | 2019-05-24 14:30 | Internal Med Progress Note ---
Hospitalist Progress Note - Encounter Date of Encounter: 05/24/19 Time of Encounter: 11:15 - Subjective Interval History: Patient was seen this morning. He has no complaints. He is mildly short of breath but no chest pain or palpitation. He denied any cough, sputum production, fever or chills. - Exam Vitals: Temp Pulse Resp BP Pulse Ox 98.0 F 80 18 116/73 96 05/24/19 12:32 05/24/19 12:32 05/24/19 12:32 05/24/19 12:32 05/24/19 12:32 Exam: General: Patient is alert, oriented 3. Head: Atraumatic, scars from previous metastatic lesion removal. Eye: EOMI, PERRLA, no scleral icterus noted. ENT: Mucous membranes moist. No odontogenic infection noted. Neck: Normal inspection, no meningismus. Respiratory: No respiratory distress, rhonchi, or wheezes noted. Cardiovascular: Regular rate and regular rhythm.. No murmurs, rubs, or gallops. GI: Soft, nondistended, normal bowel sounds. Extremities:No joint swelling, pedal edema, or tenderness noted. Neurological: Alert, oriented 3, no focal deficits. Psychiatric: normal affect, normal mood. Skin: Cutaneous lesions on his chest, though in the left upper quadrant, legs representing metastatic disease - Assessment and Plan (1) Metastatic renal cell carcinoma Current Visit: Yes Status: Chronic (2) Acute kidney injury Current Visit: Yes Status: Acute (3) Hyponatremia Current Visit: Yes Status: Acute (4) Skin lesion Current Visit: Yes Status: Chronic (5) Lower extremity edema Current Visit: Yes Status: Acute (6) Dyspnea on exertion Current Visit: Yes Status: Acute (7) ROJELIO (acute kidney injury) Current Visit: Yes Status: Acute - Summary of Assessment and Plan Summary of Assessment and Plan: 58-year-old male with history of metastatic renal cell carcinoma status post left nephrectomy with cutaneous manifestations complicated by bleeding who came into the hospital due to bleeding right 3RD toe. Symptoms were managed as following: Right third toe bleeding metastatic lesion: X-ray of the foot was read as OM, further discussion with consultants revealed more tendency toward metastatic lesion. Podiatry is consulted, plan for OR today. Post obstructive PNA: CT chest early this month with finding of woresining LAD, signs of post-obstructive PNA, large left sided pleural effusion. ID is consulted, on renally dosed cefepime, vancomycin and Flagyl. Today for thoracocentesis. MRSA and BCx are pending. Legionella and strep ag are pending. Sputum culture if possible. Left sided pleural effusion: Today for theraputic and diagnostic thoracocentesis, awaiting cultures and cytology. Check x-ray tomorrow. Echo: LVEF 65%. Mild left ventricular diastolic dysfunction. Normal right ventricular structure and function. Metastatic RCC s/p nephrectomy: On immunotherapy and palliative radition. oncology is consulted. Has hospice planned as outpatient. Patient is not candidate for more regular or chemotherapy at this point. ROJELIO: was started recently on Lasix for LE edema, hold lasix and IVF given his pleural effusion. Hypothyroidism: Continue home medication will avoid AC for DVT ppx, SCD after surgery, - Time Spent with Patient Total time spent is greater than 50% in coordination of care (as documented) at patient's floor/unit and/or counseling patient: Plan of Care Discussed with: family Internal Medicine: Result - Labs CBC & Chem 7: 05/24/19 05:10 05/24/19 05:10 Labs: Short CBC 05/23/19 05/24/19 Range/Units 16:40 05:10 WBC 9.4 8.1 (4.3-11.1) K/mcL Hgb 9.9 L 9.4 L (12.9-16.9) g/dL Hct 33.5 L 31.7 L (37.5-50.1) % Plt Count 161 148 (140-400) K/mcL Neutrophils # 5.7 (1.6-8.9) K/mcL BMP 05/23/19 05/24/19 16:40 05:10 Sodium 132 L 133 L Potassium 4.4 4.4 Chloride 98 101 Carbon Dioxide 24 23 BUN 16 17 Creatinine 1.55 H 1.59 H Glucose 163 H 150 H Calcium 8.7 8.6 Liver Function 05/24/19 05/24/19 Range/Units 10:21 10:21 Total Bilirubin 0.6 (0.3-1.0) mg/dL Direct Bilirubin 0.2 (0.0-0.2) mg/dL AST 11 L (13-39) Units/L ALT 5 L (7-52) Units/L Alkaline Phosphatase 210 H (34-104) Units/L Albumin 2.9 L 3.0 L (3.5-5.7) g/dL Urine 05/24/19 Range/Units 09:20 Urine Color Yellow (Yellow) Urine Clarity Cloudy A (Clear) Urine pH 6.5 (5.0-8.0) pH Units Ur Specific [place] 1.017 (1.010-1.025) Urine Protein 100 H (Neg-Trace) mg/dL Urine Glucose (UA) Normal (Normal) mg/dL - ABG Interpretation ABG results: PT/INR, D-dimer PT 13.7 Seconds (9.4-12.1) H 05/24/19 13:15 - Impressions Impressions Foot X-Ray 05/24/19 05:15 IMPRESSION: Lucent changes involving the tuft of the distal phalanx of the 3rd and 4th digits concerning for osteomyelitis. D/ / Lobito Butler MD / Lobito Butler MD Interpreting Provider: Lobito Butler MD Echocardiogram 05/24/19 08:00 Impressions: LVEF 65%. Mild left ventricular diastolic dysfunction. Normal right ventricular structure and function. Mild tricuspid regurgitation. Unable to estimate RVSP due to lack of IVC visualization. Left Ventricular Wall Motion: Rest Echo Findings All wall segments showed normal motion. Findings: Study Quality * Technically adequate exam. ECG Findings * Normal sinus rhythm. Left Ventricle * LVEF 65%. * Normal LV chamber size, wall thickness and systolic function. * Mild left ventricular diastolic dysfunction. Right Ventricle * Normal right ventricular structure and function. Left Atrium * Normal left atrial size. Right Atrium * Normal right atrial size. Interatrial Septum * Interatrial septum not well evaluated. Aortic Valve * Trileaflet aortic valve with normal function. * No aortic stenosis. * No aortic regurgitation. Mitral Valve * Normal mitral valve structure. * No mitral stenosis. * Trace mitral regurgitation. Tricuspid Valve * Normal tricuspid valve structure. * No tricuspid stenosis. * Mild tricuspid regurgitation. * Unable to estimate RVSP due to lack of IVC visualization. RV-RA gradient 25 mmH (normal <30mmHg) Pulmonic Valve * Pulmonic valve is not well visualized. * No pulmonic stenosis. * No pulmonic regurgitation. Aorta * Normally sized aortic root. Pericardium * The pericardium appears normal. IVC * The IVC is not well evaluated. Chest X-Ray 05/24/19 13:47 IMPRESSION: 1. Persistent but slightly diminished volume of left pleural effusion with left basilar relaxation atelectasis. 2. No pneumothorax demonstrated. 3. Vascular engorgement and cephalization is demonstrated with bilateral peribronchial cuffing and perivascular haziness. 4. Persistent consolidation/mass lesion medial and central upper, mid and lower lung. 5. Hazy alveolar density lateral mid to lower right lung may reflect subsegmental atelectasis or pneumonitis. 6. Prominent soft tissue fullness right hilum corresponds to adenopathy on recent CT chest. 7. Cardiomegaly. D/ / Sigifredo Esposito / Sigifredo Esposito Interpreting Provider: Sigifredo Esposito Chest X-Ray 05/24/19 23:56 IMPRESSION: 1. Left upper lobe pneumonia. Follow-up to resolution is recommended. 2. Cardiomegaly without overt failure. D/ / Balwinder Mejía MD / Balwinder Mejía MD Interpreting Provider: Balwinder Mejía MD Consult Discharge Plan - Plan Referrals: Angelo Allen DO [Primary Care Provider] - (1) Metastatic renal cell carcinoma Qualifiers: Laterality: left Qualified Code(s): C64.2 - Malignant neoplasm of left kidney, except renal pelvis
--- NOTE | 2019-05-24 15:03 | Event Note ---
Date of Encounter: 05/24/19 Time of Encounter: 15:02 - Cardiology Event Note ECG shows no active ischemia; sinus rhythm. Discussed with Dr. Gomez and is low cardiac risk for surgery. Cardiology will sign off.
--- NOTE | 2019-05-24 15:54 | Anesthesia Evaluation PreOp ---
Date of Encounter: 05/24/19 Time of Encounter: 15:50 - Past History Planned Operation: Amputatiob 3rd Toe Right Cardiac History: HTN, Hyperlipidemia, Arrhythmia (AFib) Pulmonary History: Denies Any Significant HX SILVERWARE CLEANER History: Denies Any Significant HX Other Medical History: Renal (Nephrectomy), Thyroid Anesthesia History: No Prior Anesthetic Complications Alcohol Use: none Drug use: none Medications and Allergies Hydralazine HCl 50 mg PO BID 02/11/18 [History] Metoprolol Tartrate [Lopressor] 50 mg PO BID 02/11/18 [History] Ranitidine HCl [Acid Per Diem Physical Therapist Assistant] 150 mg PO DAILY 02/11/18 [History] Simvastatin [Zocor] 40 mg PO HS 02/11/18 [History] Levothyroxine Sodium [Levo-T] 150 mcg PO DAILY 03/15/19 [History] dilTIAZem HCl [Diltiazem HCl] 120 mg PO DAILY 03/16/19 [History] Calcium Carbonate/Vitamin D3 [Calcium 600 + Vit D Tablet] 1 tab PO DAILY 05/09/19 [History] Amlodipine Besylate 10 mg PO DAILY 05/23/19 [History] Aspirin [Lo-Dose Aspirin EC] 81 mg PO DAILY 05/23/19 [History] Furosemide [Lasix] 20 mg PO DAILY 05/23/19 [History] Potassium Chloride [K-Tab ER] 20 meq PO DAILY 05/23/19 [History] Allergy/AdvReac Type Severity Reaction Status Date / Time adhesive tape Allergy Rash Verified 05/23/19 20:51 Penicillins [PCN] Allergy Hives Verified 05/23/19 20:51 - Meds/Allergy Pre-op Review Medications Reviewed: Yes Allergies Reviewed: Yes Beta Blockers on Current Med List: No Anesthesia Results - Labs 05/24/19 05:10 05/24/19 05:10 - Imaging EKG: report reviewed (SR) Additional studies: ECHO 2019 EF 65% Anesthesia Exam Vital Signs/O2 Sat/Glucose, Most Current Temp Pulse Resp BP Pulse Ox 05/24/19 15:03 98.3 F 85 18 109/69 97 05/24/19 14:20 97.6 F 92 18 120/74 97 05/24/19 12:32 98.0 F 80 18 116/73 96 Height: 6'0 Weight: 331 lbs NPO (# of Hours): MN Pain Scale: 0 - HEENT Pupil (Motor): Pupils equal, EOMI Mallampati: III Teeth: Edentulous Oral Opening: Less than or equal to 3 - SILVERWARE CLEANER LOC: Oriented SILVERWARE CLEANER Motor: Normal RUE, Normal LUE, Normal RLE, Normal LLE, Normal Face SILVERWARE CLEANER Sensory: Normal: RUE, LUE, LLE, Face, Deficit: RLE (paresthesia) - Cardiac Rhythm: Regular Murmur: None JVD: No Carotid Bruit: No - Pulmonary Breath Sounds: bilateral Clear Respiratory Effort: Symmetrical Anesthesia Assess/Plan ASA Score: 3 (HTN AFib MO) Level of consciousness: Cooperative, Oriented Anesthetic Plan: MAC Autologous Blood: No Monitoring Plan: Standard Monitors Recovery Plan: PACU (Discussed MAC, possible GA, agrees to proceed)
[2019-05-24 15:58] LABS: RBC,Pleural Fluid 0.003 M/mcL
[2019-05-24] MEDS ORDERED: MetroNIDAZOLE 500 MG/100 ML 500 MG/100 ML BAG IVPB ONE (16:01)
[2019-05-24 16:13] LABS: Total Protein,Pleural Fluid 3.3 g/dL
[2019-05-24] MEDS ORDERED: *HR* FentaNYL (PF) 100 MCG/2 ML VIAL ONE (16:15)
[2019-05-24] MEDS ORDERED: *HR* Midazolam HCl 2 MG/2 ML VIAL ONE (16:15)
[2019-05-24] MEDS ORDERED: Propofol 500 MG/50 ML INFUS..BTL ONE (16:16)
[2019-05-24] MEDS ORDERED: Lidocaine -MPF 2% 2 ML VIAL ONE (16:23)
[2019-05-24] MEDS ORDERED: Ondansetron 4 MG/2 ML VIAL ONE (16:35)
--- NOTE | 2019-05-24 17:12 | Orthopedic Operative Note ---
Date of procedure: 05/24/19 Pre-op diagnosis: right 3rd toe osteomyelitis, metastatic renal cell carcinoma Post-op diagnosis: same Procedure: 05/24/19 17:34 1. Right 3rd toe amputation at proximal interphalangeal joint Implants: None Complications: None Anesthesia: MAC, local Surgeon: Sandeep Montesinos Was there an process assistant present: No Estimated blood loss (cc): 10 Tourniquet Time (Minutes): 0 Specimen: Right 3rd toe to pathology Condition: stable Disposition: floor Procedure in Detail: 05/25/19 07:03 INDICATIONS AND CONSENT Mr. Myers is a 58 year old male with a history of metatastatic renal cell carcinoma. He initially presented to my office with a rapidly spreading lesion to the 3rd toe. He has a history of hypergranular, cutaneous metastasis that are being treated with radiation. After speaking with his radiation oncologist, it was determined that partial amputation of the toe for palliative care was the best treatment course. Xrays showed evidence of possible osteomyelitis or osseous metastasis at the distal phalanx of the right 3rd toe. The patient elected to proceed with partial amputation of the toe. We discussed the above procedures in detail. This included a discussion on the indications, contraindications, and possible complications including but not limited to: infection, non-healing wound, pain, swelling, bleeding, blood clots, heart complications, nerve injury, tendon injury, vascular injury, loss of limb, loss of life, and need for further surgery. We also reviewed the expected post operative course, including a discussion on the partial-weightbearing status after this procedure. He related understanding of our discussion regarding this surgery. All questions were answered to his satisfaction, and a proper written informed consent was obtained, signed, and placed in the chart. No guarantees were given, stated or implied, as to the outcome of this procedure. PROCEDURE IN DETAIL The patient was seen in the pre-operative holding area by Anesthesia, where he was consented for MAC with local block. The patient was then brought back to the operative suite and placed on the operating room table in the supine position. A sign-in was performed. MAC was then initiated per Anesthesia protocol. A well- padded pneumatic right ankle tourniquet was then placed but was not used for the procedure. Next, the right lower leg was scrubbed, prepped, and draped in the usual aseptic manner. A Kamas Time-Out was performed, and all parties in the room agreed. A total of 5 mL of 1% lidocaine plain and 5 mL of 0.25% Sensorcaine plain was injected to the right third ray a digital block distribution. A fishmouth incision was made proximal to the level of the distal third toe lesion and carried deep to the level of bone. Bovie was used for cauterization to the digital vessels. It was determined that the patient was performed with level of the proximal interphalangeal joint to continue to concern for metastasis versus osteomyelitis at the distal phalanx bone and the middle phalanx would need to be removed for adequate soft tissue closure. The toe was then disarticulated using a 15 blade at the proximal interphalangeal joint. The proximal phalanx bone and surrounding soft tissue appeared viable and healthy. The wound was then irrigated with copious amounts of normal saline. The distal right third toe was sent to pathology. The subcutaneous tissue was reapproximated using 2-0 Vicryl. The skin was reapproximated under minimal tension using 2-0 nylon. Capillary refill time of the 3rd toe stump on the right foot was also noted to be brisk at this time. The wound was then dressed with Adaptic, dry sterile dressing using Kerlix fluffs, and YAMILETH wrap. A sign-out was performed. The patient tolerated anesthesia and the procedure well, and was transferred to PAC-U with vital signs stable and vascular status intact to the right lower extremity. Needle and sponge counts were correct X 2 at the end of the case. Dr. Sandeep Montesinos was present, scrubbed, and participated in all vital aspects of the procedure. After a brief stay in PAC-U, the patient will be admitted back to the floor for continued monitoring. We will follow up on pathology results and will work closely with Oncology regarding any further surgical procedures that are needed. Patient will be discharged from the hospital to hospice care. Patient will be partial weightbearing in a surgical shoe to help with the soft tissue healing at the surgical site. 05/25/19 07:18
[2019-05-24 17:20] LABS: Appearance of Pleural Fl Hazy (Clear)
[2019-05-24] MEDS ORDERED: Naloxone 0.4 MG/ML INJ IVP PRN (17:34)
[2019-05-24 18:25] LABS: Basophils,Pleural Fluid 0 %; Eosinophils,Pleural Fluid 0 %; Monocytes,Pleural Fluid 0 %
[2019-05-24] MEDS: hydrALAZINE 25 MG TABLET PO SCH (20:32)
[2019-05-25] MEDS: Cefepime HCl 2,000 MG in Water for inj. (sterile) 20 ML IVP SCH ×2 (00:06→11:33)
[2019-05-25] MEDS: MetroNIDAZOLE 500 MG/100 ML 500 MG/100 ML BAG IVPB SCH ×2 (00:07→07:39)
[2019-05-25 05:33] LABS: Hematocrit 29.8 % (37.5-50.1); Hemoglobin 8.9 g/dL (12.9-16.9); Mean Corpuscular HGB Conc 29.9 g/dL (31.6-35.5); Mean Corpuscular Hemoglobin 26.7 pg (28.0-33.3); Mean Corpuscular Volume 89.5 fL (83.0-100.0); Mean Platelet Volume 10.2 fL (9.4-12.4); Platelet Count 140 K/mcL (140-400); Red Blood Count 3.33 M/mcL (4.19-5.50); Red Cell Distribution Width 17.2 % (11.5-14.5); White Blood Count 7.6 K/mcL (4.3-11.1)
[2019-05-25 05:56] LABS: Calcium 8.4 mg/dL (8.6-10.3); Potassium 4.6 mEq/L (3.5-5.1)
[2019-05-25] MEDS: Cholecalciferol (D-3) 1,000 UNIT (25MCG) TABLET PO SCH (07:40)
[2019-05-25] MEDS: Famotidine 20 MG TABLET PO SCH (07:40)
[2019-05-25] MEDS: hydrALAZINE 25 MG TABLET PO SCH ×2 (08:57→20:21)
[2019-05-25] MEDS: Diltiazem CD (24hr) 120 MG CAPSULE PO SCH (08:57)
[2019-05-25] MEDS: amLODIPine 5 MG TABLET PO SCH (08:58)
[2019-05-25] MEDS ORDERED: Furosemide 20 MG TABLET PO SCH (09:00)
[2019-05-25] MEDS ORDERED: Aspirin Enteric Coated 81 MG Tablet PO SCH (09:00)
--- NOTE | 2019-05-25 10:24 | Infectious Disease Progress No ---
ID Progress Note Date of Encounter: 05/25/19 Time of Encounter: 09:30 - Subjective Subjective: Patient seen and examined. No acute events noted overnight. Status post amputation of right third toe 05/24/19. Status post thoracentesis 05/24/19. Cultures and cytology are pending. The patient states overall he feels well. Denies fevers, chills, or rigors. Denies chest pain. Reports shortness of breath is markedly improved but he continues to have a persistent dry cough. Denies nausea, vomiting, or diarrhea. Denies abdominal pain or urinary complains. Denies oral thrush or skin rashes. States his appetite is good. - Objective CBC & Chem 7: 05/26/19 04:13 05/26/19 04:13 - Exam Vitals: Temp Pulse Resp BP Pulse Ox 98.4 F 92 14 106/66 97 05/25/19 07:16 05/25/19 07:16 05/25/19 07:16 05/25/19 07:16 05/25/19 07:16 Exam: Head: Atraumatic, normal inspection, normocephalic. Metastatic lesion noted to the middle of the forehead. Eye: EOMI, PERRLA, no scleral icterus noted. ENT: Mucous membranes moist. No odontogenic infection noted. Neck: Normal inspection, no meningismus. Metastatic lesion noted to the anterior neck. Respiratory: Clear to auscultation. No rales, respiratory distress, rhonchi, or wheezes noted. Cardiovascular: Regular rate and irregular rhythm, S1 and S2 audible. No murmurs, rubs, or gallops. GI: Soft, obese, normal bowel sounds. Large hernia admitted to the upper left abdomen. Metastatic skin lesions noted overlying the hernia site. Extremities:No joint swelling, pedal edema, or tenderness noted. 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 No erythema, warmth, or tenderness noted. Back: No vertebral tenderness noted. Metastatic skin lesions 2 noted to the back. Neurological: Alert, oriented 3, no focal deficits. Psychiatric: normal affect, normal mood. Skin: Dry, intact, warm. Normal color. No rashes. - Assessment and Plan (1) Toe ulcer Current Visit: Yes Status: Acute Location: Right 3rd toe. Likely secondary to renal cell mets. Has been bleeding since onset on Thursday. X-ray showed lucent changes involving the tuft of the distal phalanx of the 3rd and 4th digits concerning for OM. Podiatry consult pending. Discussed with the Podiatry team who is planning to take the patient to the OR to debride the 3rd toe to try to get the bleeding to stop. Feels that xray changes are likely secondary to metastatic disease and not osteomyelitis. ESR and CRP are elevated, likely due to malignancy. Status post amputation of right toe #3 05/24/[address] Montesinos. Qualifiers: Laterality: right Non-pressure ulcer stage: limited to breakdown of skin Qualified Code(s): L97.511 - Non-pressure chronic ulcer of other part of right foot limited to breakdown of skin SNOMED Code(s): 765340041 (2) Pneumonia Current Visit: No Status: Acute Location: RADH[facility]. Causative organism: Unclear. CT chest 05/17/19 showed new areas of dense consolidation in the left upper lobe and left lower lobe centrally that may be secondary to post-obstructive PNA vs. underlying metastatic disease. CXR shows findings concerning for PNA in the RADHAMES. The patient states he does sometimes choke when he eats, so aspiration is on the differential as well. No URI symptoms. MRSA screen positive. Blood cultures drawn 05/24/19 are pending x 2 sets. Strep pneumo and Legionella UATs negative. Currently on Vanc, cefepime, and flagyl. Qualifiers: Pneumonia type: due to unspecified organism Laterality: unspecified laterality Lung location: unspecified part of lung Qualified Code(s): J18.9 - Pneumonia, unspecified organism SNOMED Code(s): 466888764 (3) Pleural effusion Current Visit: Yes Status: Acute CT chest 05/17/19 showed an enlarging left pleural effusion. Status post thoracentesis 05/24/19 by interventional radiology. Details of thoracentesis not immediately available. Cultures and cytology are pending. Appears exudative per Light's criteria. Patient reports improvement in breathing since thoracentesis. SNOMED Code(s): 20076955 (4) Acute kidney injury Current Visit: Yes Status: Acute Etiology unclear. Continue to trend. Further workup and management per the primary team. SNOMED Code(s): 57457660, 34896414 (5) Metastatic renal cell carcinoma Current Visit: Yes Status: Chronic Diagnosed in [address] of the abdomen and pelvis showed a large mass arising from the left kidney. Status post left kidney total nephrectomy 03/18/16. Developed mediastina adenopathy. Probable biopsy of lymphadenopathy was nondiagnostic. Studies in February 2017 showed increased in the size of the right paratracheal lymph node and increasing left lower lobe pulmonary nodule right lower lobe pulmonary nodule and a right apical lung nodule as well as a soft tissue nodule in the left periaortic region increased in size with concern for progressive metastatic CA. He started pazopanib--02/28, subsequently, keytruda 05/31. Then he started cabozantinib He restarted cabozantinib 20 mg daily dose on 09/2017. He developed metastatic bony lesions, increase in hilar mass-s/p RT to both sacrum and rt hilum. Started everlimus/lenvatinib 12/31-03/02. Relapsed at multiple cutaneous sitess. MRI brain 03/22/19. Bilateral tiny cerebellar tiny lesions, fullness in sella. Started on nivolumab/ipilumab 03/02-current, and s/p RT to scalp lesions and nasal/sinus--due to bleeding. CT chest, abdomen, and pelvis 05/17/19 showed significant progression of metastatic disease seen within the chest, abdomen, and pelvis with compared to prior CT on 02/18/19. Hematology/Oncology consulted. Qualifiers: Laterality: left Qualified Code(s): C64.2 - Malignant neoplasm of left kidney, except renal pelvis SNOMED Code(s): 189249045 (6) Skin lesion Current Visit: Yes Status: Chronic Multiple skin lesions due to mets. SNOMED Code(s): 40130176 (7) Status post nephrectomy Current Visit: No Status: Acute SNOMED Code(s): 033134694, 426010185 (8) Diabetes Current Visit: No Status: Chronic Qualifiers: Diabetes mellitus type: type 2 Diabetes mellitus correction insulin use: without long term care administrator use Diabetes mellitus complication status: without complication Qualified Code(s): E11.9 - Type 2 diabetes mellitus without complications SNOMED Code(s): 54103703 - Recommendations Recommendations: Await pleural fluid cultures and cytology. Await blood cultures to finalize. Send sputum for culture if the patient is able to provide an adequate specimen. Wound care/activity per the Podiatry team. Await further recommendations from the Hem/Onc team. Continue Vancomycin IV. Pharmacy to dose. Goal trough ~15. Continue cefepime 2 grams IV Q12H. Continue flagyl 500mg TID, but can transition to PO. Duration of treatment depends on the clinical picture. Can transition to PO Avelox and doxycycline when ready for discharge to complete a total of 10 days. Monitor renal function and for drug toxicity and dose-adjust antibiotics. Consult Discharge Plan - Plan Referrals: Angelo Allen DO [Primary Care Provider] - - Attending Attestation I have personally performed a face to face evaluation on this patient. I have reviewed and agree with the care plan. History and Exam by me shows: Assessment and plan: 1.Toe ulcer 2.HCAP left upper lobe causative organism not clear concern for aspiration 3.Acute kidney injury 4.Metastatic renal cell carcinoma 5.Status post nephrectomy 6.Diabetes mellitus type 2 Recommendations: Await pleural fluid cultures and cytology. Await blood cultures to finalize. Send sputum for culture if the patient is able to provide an adequate specimen. Wound care/activity per the Podiatry team. Await further recommendations from the Hem/Onc team. Continue Vancomycin IV. Pharmacy to dose. Goal trough ~15. Continue cefepime 2 grams IV Q12H. Continue flagyl 500mg TID, but can transition to PO. Duration of treatment depends on the clinical picture. Can transition to PO Avelox and doxycycline when ready for discharge to complete a total of 10 days. Monitor renal function and for drug toxicity and dose-adjust antibiotics.
[2019-05-25] MEDS: 0.9 % Sodium Chloride 1,000 ML IVC SCH (11:33)
--- NOTE | 2019-05-25 12:06 | Internal Med Progress Note ---
Hospitalist Progress Note - Encounter Date of Encounter: 05/25/19 Time of Encounter: 12:04 - Subjective Interval History: Patient was seen and examined at bedside today. Patient has no acute complaint. Patient is status post right middle toe surgery 05/24/2019 and status post left thoracentesis on 05/24/2019. Patient reports that his breathing has improved. He denied any chest pain. Denied any cough, fever, and chills. - Exam Vitals: Temp Pulse Resp BP Pulse Ox 98.7 F 98 16 111/72 95 05/25/19 11:47 05/25/19 11:47 05/25/19 11:47 05/25/19 11:47 05/25/19 11:47 Exam: General: Patient is alert, oriented 3. Head: Atraumatic, scars from previous metastatic lesion removal. Respiratory: Mild left-sided basilar rales Cardiovascular: Regular rate and regular rhythm.. No murmurs, rubs, or gallops. GI: Soft, nondistended, normal bowel sounds. Extremities:No joint swelling, pedal edema, or tenderness noted. Neurological: Alert, oriented 3, no focal deficits. Psychiatric: normal affect, normal mood. Skin: Cutaneous lesions on his chest, though in the left upper quadrant, legs representing metastatic disease. Dressing placed on the right foot and left.foot - Assessment and Plan (1) Metastatic renal cell carcinoma Current Visit: Yes Status: Chronic Assessment and Plan: Renal cell carcinoma with metastasis with nephrectomy on the left side which was done 3 years ago. Patient presented to the hospital with right rectal bleeding metastatic lesion. X-ray of the foot initially showed concentric posterior rhinitis. Podiatry consult was placed. Podiatry thinks patient has metastatic lesion. Patient is status post amputation of right total postoperative day one. Denies any pain. We will continue pain management. Appreciate podiatry recommendation. (2) Pleural effusion Current Visit: Yes Status: Acute Assessment and Plan: Patient is status post left thoracentesis. Reports improved breathing. (3) Postobstructive pneumonia Current Visit: Yes Status: Acute Assessment and Plan: Patient has postobstructive pneumonia. CT chest earlier this month showed signs of postobstructive pneumonia. We will continue cefepime, vancomycin, and Flagyl. Blood cultures are pending. Legionella and strep antigen test are negative. ID on consult. Appreciate infectious disease recommendation. (4) Acute kidney injury Current Visit: Yes Status: Acute Assessment and Plan: Patience creatinine has been trending up since admission. Creatinine today is 1.68. Patient's Lasix was only yesterday. Patient's IV fluid were on hold yesterday. We will resume patient's IV fluid. We will continue to monitor.. (5) Hypothyroidism Current Visit: No Status: Chronic Assessment and Plan: Continue levothyroxine 150 mcg DVT Prophylaxis: SCD - Time Spent with Patient Total time spent is greater than 50% in coordination of care (as documented) at patient's floor/unit and/or counseling patient: 25 - 35 minutes Plan of Care Discussed with: patient Internal Medicine: Result - Labs CBC & Chem 7: 05/25/19 05:18 05/25/19 05:18 Labs: Short CBC 05/25/19 Range/Units 05:18 WBC 7.6 (4.3-11.1) K/mcL Hgb 8.9 L (12.9-16.9) g/dL Hct 29.8 L (37.5-50.1) % Plt Count 140 (140-400) K/mcL BMP 05/25/19 05:18 Sodium 135 L Potassium 4.6 Chloride 101 Carbon Dioxide 23 BUN 19 Creatinine 1.68 H Glucose 130 H Calcium 8.4 L - ABG Interpretation ABG results: PT/INR, D-dimer PT 13.7 Seconds (9.4-12.1) H 05/24/19 13:15 - Impressions Impressions Chest X-Ray 05/24/19 13:47 IMPRESSION: 1. Persistent but slightly diminished volume of left pleural effusion with left basilar relaxation atelectasis. 2. No pneumothorax demonstrated. 3. Vascular engorgement and cephalization is demonstrated with bilateral peribronchial cuffing and perivascular haziness. 4. Persistent consolidation/mass lesion medial and central upper, mid and lower lung. 5. Hazy alveolar density lateral mid to lower right lung may reflect subsegmental atelectasis or pneumonitis. 6. Prominent soft tissue fullness right hilum corresponds to adenopathy on recent CT chest. 7. Cardiomegaly. D/ / Sigifredo Esposito / Sigifredo Esposito Interpreting Provider: Sigifredo Esposito Fluoroscopy 05/24/19 16:29 IMPRESSION: Amputation distal phalanges 3rd toe. Correlate with procedural report. D/ / Sigifredo Esposito / Sigifredo Esposito Interpreting Provider: Sigifredo Esposito Chest X-Ray 05/25/19 08:00 IMPRESSION: No post thoracentesis pneumothorax is identified. There does appear to be reaccumulation of some pleural fluid on the left compared to the previous study on 05/24/2019. D/ / Lobito Butler MD / Lobito Butler MD Interpreting Provider: Lobito Butler MD Consult Discharge Plan - Plan Referrals: Angelo Allen DO [Primary Care Provider] - (1) Metastatic renal cell carcinoma Qualifiers: Laterality: left Qualified Code(s): C64.2 - Malignant neoplasm of left kidney, except renal pelvis (5) Hypothyroidism Qualifiers: Hypothyroidism type: unspecified Qualified Code(s): E03.9 - Hypothyroidism, unspecified
[2019-05-25] MEDS: metroNIDAZOLE 500 MG TABLET PO SCH ×2 (14:36→20:20)
--- NOTE | 2019-05-25 15:00 | Electrocardiograph Report ---
[address] [place], [place] [address] Test Date: 2019-05-24 Pat Name: Bartolo Myers Department: 115 Room: 3A48 Gender: M Spot Welder Line: YOLIS : 1960 Requested By: Musa Alba Order Number: [id number] Reading MD: Bartolo Milligan Measurements Intervals Vincent Rate: 82 P: 55 SD: 163 QRS: 62 QRSD: 108 T: 52 QT: 394 QTc: 432 Interpretive Statements SINUS RHYTHM Poor R wave progression Electronically Signed On 05-25-2019 14:59:25 EDT by Bartolo Milligan
--- NOTE | 2019-05-25 15:18 | Podiatry Progress Note ---
Date of Encounter: 05/25/19 Time of Encounter: 15:00 - Assessment and Plan (1) Skin lesion Current Visit: Yes Status: Chronic Metastatic skin lesion of the right foot toe #3 s/p 1. Right 3rd toe amputation at proximal interphalangeal joint per . POD #1 PLAN: Patient assessment complete at bedside Patient resting comfortably and no acute needs noted at this time Toe was partially amputated and sent for pathology Imaging concerning for osteo however due to nature of patients cancer this is likely metastatic. Will await return of path on bone Recovery course discussed. Verbalized understanding VS stable WBC 7.6 and afebile. Subjective Interval history: Patient POD #1 1. Right 3rd toe amputation at proximal interphalangeal joint. Patient resting on arrival. No acute needs. No strikethrough drainage to dressing. Denies any pain or complaints at this time. Denies any fevers, chills, n/v or fls Objective - Vital Signs Vital Signs: Vital Signs Temp Pulse Resp BP Pulse Ox 05/25/19 11:47 98.7 F 98 16 111/72 95 05/25/19 07:16 98.4 F 92 14 106/66 97 05/25/19 03:35 99.0 F 89 15 95/62 94 05/24/19 23:33 98.6 F 84 15 108/70 94 05/24/19 20:24 98.5 F 92 15 139/79 97 05/24/19 18:48 97.8 F 89 16 132/79 96 05/24/19 17:50 98.2 F 87 16 111/72 96 05/24/19 17:25 98.4 F 86 17 120/75 95 05/24/19 17:00 98.5 F 85 18 114/67 95 Intake and Output 05/24/19 05/25/19 05/25/19 23:59 07:59 15:59 Intake Total 100 / 1065 320 / 1270 950 / 1270 Output Total 310 / 310 625 / 825 200 / 825 Balance -210 / 755 -305 / 445 750 / 445 Intake: IV Fluids 100 / 1065 120 / 490 370 / 490 Maxipime 2,000 MG In Water for 20 40 20 / 40 inj. (sterile) 20 ML @ 300 mls/ hr IVP Q12H [facility] Rx#:[id number] Flagyl Premix 500 MG/100 ML 500 100 / 200 100 / 200 100 / 200 mg In 100 ml @ 100 mls/hr IVPB Q8HR [facility] Rx#:[id number] Vancocin 1,250 MG In 0.9 % 250 / 250 Sodium Chloride 250 ML @ 166.67 mls/hr IVPB Q24H [facility] Rx#: [id number] Oral 200 / 780 580 / 780 Output: Urine 300 / 300 625 / 825 200 / 825 Estimated Blood Loss Other: Meal Lunch Percent of Meal Consumed 100% Weight 150.8 kg Blood Glucose* 150 Patient Weight 05/25/19 23:59 Weight 150.8 kg - Exam Exam: CONSTITUTIONAL: awake alert and oriented x3 VASCULAR: warm toes, cap refill <3 seconds, no calf pain with manual compression NEUROLOGICAL: diminished sensation to light and moderate touch SKIN: will leave post operative dressing intact for today. will plan on change tomorrow. - Lab Result Diagrams: 05/26/19 04:13 05/26/19 04:13 Labs: Abnormal lab results RBC 3.33 M/mcL (4.19-5.50) L 05/25/19 05:18 Hgb 8.9 g/dL (12.9-16.9) L 05/25/19 05:18 Hct 29.8 % (37.5-50.1) L 05/25/19 05:18 MCH 26.7 pg (28.0-33.3) L 05/25/19 05:18 MCHC 29.9 g/dL (31.6-35.5) L 05/25/19 05:18 RDW 17.2 % (11.5-14.5) H 05/25/19 05:18 Eosinophils # 0.7 K/mcL (0.0-0.6) H 05/24/19 05:10 ESR 128 mm/hr (0-10) H 05/24/19 10:21 PT 13.7 Seconds (9.4-12.1) H 05/24/19 13:15 APTT 38.2 Seconds (26.0-36.0) H 05/23/19 16:40 Sodium 135 mEq/L (136-145) L 05/25/19 05:18 Creatinine 1.68 mg/dL (0.70-1.30) H 05/25/19 05:18 Est GFR ( Amer) 51 (> 60) L 05/25/19 05:18 Est GFR (Non-Af Amer) 42 (> 60) L 05/25/19 05:18 Glucose 130 mg/dL (70-105) H 05/25/19 05:18 POC Glucose 150 mg/dL (70-99) H 05/24/19 17:06 Calculated Osmolality 279 (280-300) L 05/23/19 16:40 Calcium 8.4 mg/dL (8.6-10.3) L 05/25/19 05:18 AST 11 Units/L (13-39) L 05/24/19 10:21 ALT 5 Units/L (7-52) L 05/24/19 10:21 Alkaline Phosphatase 210 Units/L (34-104) H 05/24/19 10:21 C-Reactive Protein 159 mg/L (Less than 10) H 05/24/19 10:21 Albumin 2.9 g/dL (3.5-5.7) L 05/24/19 10:21 Albumin 3.0 g/dL (3.5-5.7) L 05/24/19 10:21 Globulin 3.6 g/dL (2.4-3.5) H 05/24/19 10:21 Albumin/Globulin Ratio 0.8 (1.1-2.2) L 05/24/19 10:21 Albumin/Globulin Ratio 0.9 (1.1-2.2) L 05/24/19 10:21 Urine Clarity Cloudy (Clear) A 05/24/19 09:20 Urine Protein 100 mg/dL (Neg-Trace) H 05/24/19 09:20 Urine Blood Large (Negative) H 05/24/19 09:20 Ur Leukocyte Esterase Small (Negative) H 05/24/19 09:20 Urine Microscopic RBC TNTC per hpf (0-3) H 05/24/19 09:20 Urine Microscopic WBC 15-30 per hpf (0-3) H 05/24/19 09:20 Ur Squamous Epith Cells Many per lpf (None-Few) H 05/24/19 09:20 Pleural Appearance Hazy (Clear) A 05/24/19 13:40 Pleural RBC 0.003 M/mcL (0.000-0.002) H 05/24/19 13:40 Pleural Tot Nuc Cell 2548 TNC/mcL (0-1000) H 05/24/19 13:40 Nasal Screen MRSA (PCR) DETECTED (Not Detect) A 05/24/19 11:35 Microbiology, Last 48 Hours 05/24/19 13:40 Body Fluid Culture - Preliminary Pleural Fluid 05/24/19 09:20 Legionella Antigen - Final Urine,Clean Catch Streptococcus pneumoniae Antigen (M - Final 05/24/19 10:21 Blood Culture - Preliminary Peripheral Venipuncture Culture is incubating and being continuously monitored for growth. Final report to follow. 05/24/19 10:21 Blood Culture - Preliminary Peripheral Venipuncture Culture is incubating and being continuously monitored for growth. Final report to follow. Consult Discharge Plan - Plan Referrals: Angelo Allen DO [Primary Care Provider] - Prescriptions: Moxifloxacin HCl [Avelox] 400 mg PO DAILY 10 Days #10 tablet Moxifloxacin HCl [Avelox] 400 mg PO DAILY 10 Days #10 tablet
[2019-05-25 17:28] LABS: Calcium 8.1 mg/dL (8.6-10.3); Potassium 4.5 mEq/L (3.5-5.1)
[2019-05-26] MEDS: Cefepime HCl 2,000 MG in Water for inj. (sterile) 20 ML IVP SCH ×3 (00:38→22:58)
[2019-05-26 04:58] LABS: Basophils % 0.4 %; Eosinophils # 0.9 K/mcL (0.0-0.6); Hematocrit 29.1 % (37.5-50.1); Hemoglobin 8.6 g/dL (12.9-16.9); Immature Granulocytes % 1.1 % (0-4); Lymphocytes # 0.9 K/mcL (0.6-4.6); Mean Corpuscular HGB Conc 29.6 g/dL (31.6-35.5); Mean Corpuscular Hemoglobin 26.7 pg (28.0-33.3); Mean Corpuscular Volume 90.4 fL (83.0-100.0); Mean Platelet Volume 10.5 fL (9.4-12.4); Monocytes # 0.7 K/mcL (0.0-1.3); Neutrophils # 5.4 K/mcL (1.6-8.9); Platelet Count 141 K/mcL (140-400); Red Blood Count 3.22 M/mcL (4.19-5.50); Red Cell Distribution Width 17.2 % (11.5-14.5); Segmented Neutrophils % 67.5 %
[2019-05-26 05:13] LABS: Calcium 8.4 mg/dL (8.6-10.3); Potassium 4.7 mEq/L (3.5-5.1)
[2019-05-26] MEDS: 0.9 % Sodium Chloride 1,000 ML IVC SCH (06:25)
[2019-05-26] MEDS: Cholecalciferol (D-3) 1,000 UNIT (25MCG) TABLET PO SCH (09:08)
[2019-05-26] MEDS: Famotidine 20 MG TABLET PO SCH (09:08)
[2019-05-26] MEDS: hydrALAZINE 25 MG TABLET PO SCH ×2 (09:08→20:39)
[2019-05-26] MEDS: Diltiazem CD (24hr) 120 MG CAPSULE PO SCH (09:08)
[2019-05-26] MEDS: metroNIDAZOLE 500 MG TABLET PO SCH ×3 (09:08→20:40)
[2019-05-26] MEDS: amLODIPine 5 MG TABLET PO SCH (09:08)
--- NOTE | 2019-05-26 10:34 | Infectious Disease Progress No ---
ID Progress Note Date of Encounter: 05/26/19 Time of Encounter: 09:30 - Subjective Subjective: Patient seen and examined. No acute events noted overnight. Status post amputation of right third toe 05/24/19. Status post thoracentesis 05/24/19. Cultures and cytology are negative. The patient states overall he feels well. Denies fevers, chills, or rigors, but had a tmax 100.8 overnight. Denies chest pain. Reports shortness of breath is markedly improved and only when he gets exerted, but he continues to have a persistent dry cough. Denies nausea, vomiting, or diarrhea. Denies abdominal pain or urinary complains. Denies oral thrush or skin rashes. States his appetite is good. States he has not had a BM since Thursday. - Objective CBC & Chem 7: 05/27/19 05:00 05/27/19 05:00 - Exam Vitals: Temp Pulse Resp BP Pulse Ox 98.0 F 89 16 105/68 96 05/26/19 06:51 05/26/19 06:51 05/26/19 06:51 05/26/19 06:51 05/26/19 06:51 Exam: Head: Atraumatic, normal inspection, normocephalic. Metastatic lesion noted to the middle of the forehead. Eye: EOMI, PERRLA, no scleral icterus noted. ENT: Mucous membranes moist. No odontogenic infection noted. Neck: Normal inspection, no meningismus. Metastatic lesion noted to the anterior neck. Respiratory: Clear to auscultation. No rales, respiratory distress, rhonchi, or wheezes noted. Cardiovascular: Regular rate and irregular rhythm, S1 and S2 audible. No murmurs, rubs, or gallops. GI: Soft, obese, normal bowel sounds. Large hernia admitted to the upper left abdomen. Metastatic skin lesions noted overlying the hernia site. Extremities:No joint swelling, pedal edema, or tenderness noted. Right foot dressing C/D/I. No erythema, warmth, or tenderness noted. Back: No vertebral tenderness noted. Metastatic skin lesions 2 noted to the back. Neurological: Alert, oriented 3, no focal deficits. Psychiatric: normal affect, normal mood. Skin: Dry, intact, warm. Normal color. No rashes. - Assessment and Plan (1) Toe ulcer Status: Acute Location: Right 3rd toe. Likely secondary to renal cell mets. Has been bleeding since onset on Thursday. X-ray showed lucent changes involving the tuft of the distal phalanx of the 3rd and 4th digits concerning for OM. Podiatry consulted. Discussed with the Podiatry team who states debridement/amputation palliative to assist with getting the bleeding to stop. Feels that xray changes are likely secondary to metastatic disease and not osteomyelitis. ESR and CRP are elevated, likely due to malignancy. Status post amputation of right toe #3 05/24/[address] Montesinos. Qualifiers: Laterality: right Non-pressure ulcer stage: limited to breakdown of skin Qualified Code(s): L97.511 - Non-pressure chronic ulcer of other part of right foot limited to breakdown of skin SNOMED Code(s): 572678446 (2) Pneumonia Status: Acute Location: [facility]. Causative organism: Unclear. CT chest 05/17/19 showed new areas of dense consolidation in the left upper lobe and left lower lobe centrally that may be secondary to post-obstructive PNA vs. underlying metastatic disease. CXR shows findings concerning for PNA in the RADHAMES. The patient states he does sometimes choke when he eats, so aspiration is on the differential as well. No URI symptoms. MRSA screen positive. Blood cultures drawn 05/24/19 are NGTDx 2 sets. Strep pneumo and Legionella UATs negative. Currently on Vanc, cefepime, and flagyl. Qualifiers: Pneumonia type: due to unspecified organism Laterality: unspecified laterality Lung location: unspecified part of lung Qualified Code(s): J18.9 - Pneumonia, unspecified organism SNOMED Code(s): 283007134 (3) Pleural effusion Status: Acute CT chest 05/17/19 showed an enlarging left pleural effusion. Status post thoracentesis 05/24/19 by interventional radiology. Details of t horacentesis not immediately available. Cultures and cytology are pending. Appears exudative per Light's criteria. Patient reports improvement in breathing since thoracentesis. Cultures are no growth. Gram stain is negative. Cytology negative for malignancy. SNOMED Code(s): 65659484 (4) Acute kidney injury Status: Acute Etiology unclear. Improved. Continue to trend. Further workup and management per the primary team. SNOMED Code(s): 22554204, 34639158 (5) Metastatic renal cell carcinoma Status: Chronic Diagnosed in [address] of the abdomen and pelvis showed a large mass arising from the left kidney. Status post left kidney total nephrectomy 03/18/16. Developed mediastina adenopathy. Probable biopsy of lymphadenopathy was nondiagnostic. Studies in February 2017 showed increased in the size of the right paratracheal lymph node and increasing left lower lobe pulmonary nodule right lower lobe pulmonary nodule and a right apical lung nodule as well as a soft tissue nodule in the left periaortic region increased in size with concern for progressive metastatic CA. He started pazopanib--02/28, subsequently, keytruda 05/31. Then he started cabozan tinib He restarted cabozantinib 20 mg daily dose on 09/2017. He developed metastatic bony lesions, increase in hilar mass-s/p RT to both sacrum and rt hilum. Started everlimus/lenvatinib 12/31-03/02. Relapsed at multiple cutaneous sitess. MRI brain 03/22/19. Bilateral tiny cerebellar tiny lesions, fullness in sella. Started on nivolumab/ipilumab 03/02-current, and s/p RT to scalp lesions and nasal/sinus--due to bleeding. CT chest, abdomen, and pelvis 05/17/19 showed significant progression of metasta tic disease seen within the chest, abdomen, and pelvis with compared to prior CT on 02/18/19. Hematology/Oncology consulted. Qualifiers: Laterality: left Qualified Code(s): C64.2 - Malignant neoplasm of left kidney, except renal pelvis SNOMED Code(s): 403046801 (6) Skin lesion Status: Chronic Multiple skin lesions due to mets. SNOMED Code(s): 15016010 (7) Status post nephrectomy Status: Acute SNOMED Code(s): 977941075, 053414420 (8) Diabetes Status: Chronic Qualifiers: Diabetes mellitus type: type 2 Diabetes mellitus local [employer] insulin use: without fci use Diabetes mellitus complication status: without complication Qualified Code(s): E11.9 - Type 2 diabetes mellitus without complications SNOMED Code(s): 24593607 - Recommendations Recommendations: Await pleural fluid cultures to finalize. Await blood cultures to finalize. Send sputum for culture if the patient is able to provide an adequate specimen. Wound care/activity per the Podiatry team. Await further recommendations from the Hem/Onc team. Continue Vancomycin IV. Pharmacy to dose. Goal trough ~15. Continue cefepime 2 grams IV Q12H. Continue flagyl 500mg TID, but can transition to PO. Duration of treatment depends on the clinical picture. Can transition to PO Avelox and doxycycline when ready for discharge to complete a total of 10 days. Monitor renal function and for drug toxicity and dose-adjust antibiotics. Consult Discharge Plan - Plan Instructions: Toe Amputation (DC) Referrals: Sandeep Montesinos DPM [Partnered Physician] - 05/30/19 1:30 pm Angelo Allen DO [Primary Care Provider] - 06/01/19 1:00 pm Prescriptions: Moxifloxacin HCl [Avelox] 400 mg PO DAILY 7 Days #7 tablet Prescription Printed Doxycycline 100 mg PO BID 7 Days #14 capsule Prescription Printed - Attending Attestation I have personally performed a face to face evaluation on this patient. I have reviewed and agree with the care plan. History and Exam by me shows: Assessment and plan: 1.Toe ulcer 2.HCAP left upper lobe causative organism not clear concern for aspiration 3.Acute kidney injury 4.Metastatic renal cell carcinoma 5.Status post nephrectomy 6.Diabetes mellitus type 2 Recommendations: Await cultures to finalize Continue vancomycin Continue cefepime Continue Flagyl Goal vancomycin trough around 15 Duration of treatment depends on clinical picture but we can probably switch him to oral doxycycline plus oral Avelox on discharge to complete a 10 day course Monitor labs and for drug toxicity
--- NOTE | 2019-05-26 13:15 | Internal Med Progress Note ---
Hospitalist Progress Note - Encounter Date of Encounter: 05/26/19 Time of Encounter: 13:12 - Subjective Interval History: Pt was seen and examined at bed side today. Pt reports sore throat. However, he denies any fever and chills. Reports his SOB better conterolled after thoracentesis on 05/24/19. Denies any acute issues and concerns other than that. - Exam Vitals: Temp Pulse Resp BP Pulse Ox 98.4 F 92 16 127/67 96 05/26/19 11:58 05/26/19 11:58 05/26/19 11:58 05/26/19 11:58 05/26/19 11:58 Exam: General: Patient is alert, oriented 3. Head: Atraumatic, scars from previous metastatic lesion removal. Respiratory: Mild left-sided basilar rales Cardiovascular: Regular rate and regular rhythm.. No murmurs, rubs, or gallops. GI: Soft, nondistended, normal bowel sounds. Extremities:No joint swelling, pedal edema, or tenderness noted. Neurological: Alert, oriented 3, no focal deficits. Psychiatric: normal affect, normal mood. Skin: Cutaneous lesions on his chest, though in the left upper quadrant, legs representing metastatic disease. Dressing placed on the right foot and left.foot - Assessment and Plan (1) Metastatic renal cell carcinoma Current Visit: Yes Status: Chronic Assessment and Plan: Renal cell carcinoma with metastasis with nephrectomy on the left side which was done 3 years ago. Patient presented to the hospital with right toe bleeding metastatic lesion. X-ray of the foot initially showed concerns for o steromyelitis. Podiatry consult was placed. Podiatry thinks patient has metastatic lesion. Patient is status post amputation of right total postoperative day # 2. Denies any pain. We will continue pain management. Appreciate podiatry recommendation. Patient had a discussin with Dr. Ulloa outpatient whois pt's radiation oncologist regarding hospice care. Pt to determiend about hospice care outpatient (2) Pleural effusion Current Visit: Yes Status: Acute Assessment and Plan: Patient is status post left thoracentesis 05/24/19. Reports improved breathing. (3) Postobstructive pneumonia Current Visit: Yes Status: Acute Assessment and Plan: Patient has postobstructive pneumonia. CT chest earlier this month showed signs of postobstructive pneumonia. We will continue cefepime, vancomycin, and [place] gyl. Blood cultures are pending. Legionella and strep antigen test are negative. ID on consult. Appreciate infectious disease recommendation. ID recommended that patient can be switched to oral regimen of Avelox and Doxycyclin for 10 additional days. (4) Acute kidney injury Current Visit: Yes Status: Acute Assessment and Plan: Cr is down trending. Will continue to monitor (5) Hypothyroidism Current Visit: No Status: Chronic Assessment and Plan: Continue levothyroxine 150 mcg DVT Prophylaxis: SCD - Time Spent with Patient Total time spent is greater than 50% in coordination of care (as documented) at patient's floor/unit and/or counseling patient: 25 - 35 minutes Plan of Care Discussed with: patient Internal Medicine: Result - Labs CBC & Chem 7: 05/26/19 04:13 05/26/19 04:13 Labs: Short CBC 05/26/19 Range/Units 04:13 WBC 8.0 (4.3-11.1) K/mcL Hgb 8.6 L (12.9-16.9) g/dL Hct 29.1 L (37.5-50.1) % Plt Count 141 (140-400) K/mcL Neutrophils # 5.4 (1.6-8.9) K/mcL BMP 05/25/19 05/26/19 16:36 04:13 Sodium 131 L 130 L Potassium 4.5 4.7 Chloride 101 100 Carbon Dioxide 22 L 20 L BUN 20 19 Creatinine 1.69 H 1.60 H Glucose 209 H 138 H Calcium 8.1 L 8.4 L - ABG Interpretation ABG results: PT/INR, D-dimer PT 13.7 Seconds (9.4-12.1) H 05/24/19 13:15 - Impressions Impressions Thoracentesis 05/24/19 09:46 IMPRESSION: Successful ultrasound guided thoracentesis. D/ / Yasir Ward MD / Yasir Ward MD Interpreting Provider: Yasir Ward MD Consult Discharge Plan - Plan Referrals: Angelo Allen DO [Primary Care Provider] - (1) Metastatic renal cell carcinoma Qualifiers: Laterality: left Qualified Code(s): C64.2 - Malignant neoplasm of left kidney, except renal pelvis (5) Hypothyroidism Qualifiers: Hypothyroidism type: unspecified Qualified Code(s): E03.9 - Hypothyroidism, unspecified
--- NOTE | 2019-05-26 13:26 | Podiatry Progress Note ---
Date of Encounter: 05/26/19 Time of Encounter: 12:00 - Assessment and Plan (1) Skin lesion Current Visit: Yes Status: Chronic Metastatic skin lesion of the right foot toe #3 s/p 1. Right 3rd toe amputation at proximal interphalangeal joint per . POD #2 PLAN: Patient assessment complete at bedside dressing removed, toe cleansed at bedside with NS, pat dry, painted with betadine, applied adaptic, 4x4 and kerlix. Tolerated well. Patient resting comfortably and no acute needs noted at this time Toe was partially amputated and sent for pathology Imaging concerning for osteo however due to nature of patients cancer this is likely metastatic. Will await return of path on bone Recovery course discussed. Verbalized understanding VS stable WBC 7.6 and afebile. Dressing is to be left intact upon discharge Will be discharged with post operative shoe, order placed to have brought to bedside Patient is to ambulate with postoperative shoe in place Protective weight bearing Will need appointment prior to discharge to be seen in office 1 week following discharge with [facility] or myself Continue to monitor at this time. Will follow while inpatient. Call office with any fevers, chills, nv flu like symptoms, calf pain or trauma Subjective Interval history: Patient POD #2 1. Right 3rd toe amputation at proximal interphalangeal joint. Patient resting on arrival. No acute needs. No strikethrough drainage to dressing. Denies any pain or complaints at this time. Denies any fevers, chills, n/v or fls Objective - Vital Signs Vital Signs: Vital Signs Temp Pulse Resp BP Pulse Ox 05/26/19 11:58 98.4 F 92 16 127/67 96 05/26/19 06:51 98.0 F 89 16 105/68 96 05/25/19 22:35 98.1 F 105 14 129/78 93 05/25/19 19:15 100.8 F H 103 14 126/70 94 05/25/19 15:53 98.5 F 99 14 124/77 95 Intake and Output 05/25/19 05/26/19 05/26/19 23:59 07:59 15:59 Intake Total 420 / 1690 1050 / 1530 480 / 1530 Output Total 725 / 1550 450 / 450 Balance -305 / 140 600 / 1080 480 / 1080 Intake: IV Fluids 1020 / 1020 0.9 % Sodium Chloride 1,000 ML 1000 / 1000 @ 60 mls/hr IVC .[id number] [facility] Rx #:[id number] Maxipime 2,000 MG In Water for inj. (sterile) 20 ML @ 300 mls/ hr IVP Q12H [facility] Rx#:[id number] Oral 420 / 1200 30 / 510 480 / 510 Output: Urine 725 / 1550 450 / 450 Other: Meal Dinner Breakfast Percent of Meal Consumed 90% 100% - Exam Exam: CONSTITUTIONAL: awake alert and oriented x3 VASCULAR: warm toes, cap refill <3 seconds, no calf pain with manual compression NEUROLOGICAL: diminished sensation to light and moderate touch SKIN: incision line well approximated and without clinical signs of infection, ischemia or dehiscence. No drainage. Minimal edema and mild erythema associated with post operative healing. No healing issues noted at this time. - Lab Result Diagrams: 05/26/19 04:13 05/26/19 04:13 Labs: Abnormal lab results RBC 3.22 M/mcL (4.19-5.50) L 05/26/19 04:13 Hgb 8.6 g/dL (12.9-16.9) L 05/26/19 04:13 Hct 29.1 % (37.5-50.1) L 05/26/19 04:13 MCH 26.7 pg (28.0-33.3) L 05/26/19 04:13 MCHC 29.6 g/dL (31.6-35.5) L 05/26/19 04:13 RDW 17.2 % (11.5-14.5) H 05/26/19 04:13 Eosinophils # 0.9 K/mcL (0.0-0.6) H 05/26/19 04:13 ESR 128 mm/hr (0-10) H 05/24/19 10:21 PT 13.7 Seconds (9.4-12.1) H 05/24/19 13:15 APTT 38.2 Seconds (26.0-36.0) H 05/23/19 16:40 Sodium 130 mEq/L (136-145) L 05/26/19 04:13 Carbon Dioxide 20 mEq/L (23-29) L 05/26/19 04:13 Creatinine 1.60 mg/dL (0.70-1.30) H 05/26/19 04:13 Est GFR ( Amer) 54 (> 60) L 05/26/19 04:13 Est GFR (Non-Af Amer) 45 (> 60) L 05/26/19 04:13 Glucose 138 mg/dL (70-105) H 05/26/19 04:13 POC Glucose 150 mg/dL (70-99) H 05/24/19 17:06 Calculated Osmolality 274 (280-300) L 05/26/19 04:13 Calcium 8.4 mg/dL (8.6-10.3) L 05/26/19 04:13 AST 11 Units/L (13-39) L 05/24/19 10:21 ALT 5 Units/L (7-52) L 05/24/19 10:21 Alkaline Phosphatase 210 Units/L (34-104) H 05/24/19 10:21 C-Reactive Protein 159 mg/L (Less than 10) H 05/24/19 10:21 Albumin 2.9 g/dL (3.5-5.7) L 05/24/19 10:21 Albumin 3.0 g/dL (3.5-5.7) L 05/24/19 10:21 Globulin 3.6 g/dL (2.4-3.5) H 05/24/19 10:21 Albumin/Globulin Ratio 0.8 (1.1-2.2) L 05/24/19 10:21 Albumin/Globulin Ratio 0.9 (1.1-2.2) L 05/24/19 10:21 Urine Clarity Cloudy (Clear) A 05/24/19 09:20 Urine Protein 100 mg/dL (Neg-Trace) H 05/24/19 09:20 Urine Blood Large (Negative) H 05/24/19 09:20 Ur Leukocyte Esterase Small (Negative) H 05/24/19 09:20 Urine Microscopic RBC TNTC per hpf (0-3) H 05/24/19 09:20 Urine Microscopic WBC 15-30 per hpf (0-3) H 05/24/19 09:20 Ur Squamous Epith Cells Many per lpf (None-Few) H 05/24/19 09:20 Pleural Appearance Hazy (Clear) A 05/24/19 13:40 Pleural RBC 0.003 M/mcL (0.000-0.002) H 05/24/19 13:40 Pleural Tot Nuc Cell 2548 TNC/mcL (0-1000) H 05/24/19 13:40 Nasal Screen MRSA (PCR) DETECTED (Not Detect) A 05/24/19 11:35 Microbiology, Last 48 Hours 05/24/19 13:40 Body Fluid Culture - Preliminary Pleural Fluid 05/24/19 09:20 Legionella Antigen - Final Urine,Clean Catch Streptococcus pneumoniae Antigen (M - Final 05/24/19 10:21 Blood Culture - Preliminary Peripheral Venipuncture Culture is incubating and being continuously monitored for growth. Final report to follow. 05/24/19 10:21 Blood Culture - Preliminary Peripheral Venipuncture Culture is incubating and being continuously monitored for growth. Final report to follow. Consult Discharge Plan - Plan Referrals: Angelo Allen DO [Primary Care Provider] -
[2019-05-26 20:33] LABS: Fluid Source for Albumin PLEURAL FLUID
[2019-05-27 05:47] LABS: Basophils # 0.1 K/mcL (0.0-0.2); Basophils % 0.5 %; Eosinophils # 1.1 K/mcL (0.0-0.6); Hematocrit 29.8 % (37.5-50.1); Hemoglobin 8.8 g/dL (12.9-16.9); Immature Granulocytes % 1.7 % (0-4); Lymphocytes # 0.9 K/mcL (0.6-4.6); Lymphocytes % 9.2 %; Mean Corpuscular HGB Conc 29.5 g/dL (31.6-35.5); Mean Corpuscular Hemoglobin 26.2 pg (28.0-33.3); Mean Corpuscular Volume 88.7 fL (83.0-100.0); Mean Platelet Volume 10.8 fL (9.4-12.4); Monocytes # 0.9 K/mcL (0.0-1.3); Monocytes % 8.9 %; Neutrophils # 6.7 K/mcL (1.6-8.9); Platelet Count 161 K/mcL (140-400); Red Blood Count 3.36 M/mcL (4.19-5.50); Red Cell Distribution Width 17.3 % (11.5-14.5); Segmented Neutrophils % 68.7 %; White Blood Count 9.8 K/mcL (4.3-11.1)
[2019-05-27 06:03] LABS: Potassium 4.7 mEq/L (3.5-5.1)
[2019-05-27] MEDS: metroNIDAZOLE 500 MG TABLET PO SCH ×2 (09:18→14:16)
[2019-05-27] MEDS: hydrALAZINE 25 MG TABLET PO SCH (09:18)
[2019-05-27] MEDS: amLODIPine 5 MG TABLET PO SCH (09:19)
[2019-05-27] MEDS: Famotidine 20 MG TABLET PO SCH (09:19)
[2019-05-27] MEDS: Cholecalciferol (D-3) 1,000 UNIT (25MCG) TABLET PO SCH (09:19)
[2019-05-27] MEDS: Diltiazem CD (24hr) 120 MG CAPSULE PO SCH (09:20)
--- NOTE | 2019-05-27 11:06 | Infectious Disease Progress No ---
ID Progress Note Date of Encounter: 05/27/19 Time of Encounter: 11:04 - Subjective Subjective: Patient seen and examined. No acute events noted overnight. Status post amputation of right third toe 05/24/19. Status post thoracentesis 05/24/19. Cultures and cytology are negative. The patient states overall he feels well. Denies fevers, chills, or rigors. Afebrile overnight. Denies chest pain. Reports shortness of breath is markedly improved and only when he gets exerted, but he continues to have a persistent dry cough. Denies nausea, vomiting, or diarrhea. Denies abdominal pain or urinary complains. Denies oral thrush or skin rashes. States his appetite is good. States he has not had a BM since Thursday. States he has a hoarse voice today, but denies URI symptoms. - Objective CBC & Chem 7: 05/27/19 05:00 05/27/19 05:00 - Exam Vitals: Temp Pulse Resp BP Pulse Ox 98.0 F 100 16 109/71 96 05/27/19 07:58 05/27/19 07:58 05/27/19 07:58 05/27/19 07:58 05/27/19 07:58 Exam: Head: Atraumatic, normal inspection, normocephalic. Metastatic lesion noted to the middle of the forehead. Eye: EOMI, PERRLA, no scleral icterus noted. ENT: Mucous membranes moist. No odontogenic infection noted. Neck: Normal inspection, no meningismus. Metastatic lesion noted to the anterior neck. Respiratory: Clear to auscultation. No rales, respiratory distress, rhonchi, or wheezes noted. Cardiovascular: Regular rate and irregular rhythm, S1 and S2 audible. No murmurs, rubs, or gallops. GI: Soft, obese, normal bowel sounds. Large hernia admitted to the upper left abdomen. Metastatic skin lesions noted overlying the hernia site. Extremities:No joint swelling, pedal edema, or tenderness noted. Right foot dressing C/D/I. No erythema, warmth, or tenderness noted. Back: No vertebral tenderness noted. Metastatic skin lesions 2 noted to the back. Neurological: Alert, oriented 3, no focal deficits. Psychiatric: normal affect, normal mood. Skin: Dry, intact, warm. Normal color. No rashes. - Assessment and Plan (1) Toe ulcer Status: Acute Location: Right 3rd toe. Likely secondary to renal cell mets. Has been bleeding since onset on Thursday. X-ray showed lucent changes involving the tuft of the distal phalanx of the 3rd and 4th digits concerning for OM. Podiatry consulted. Discussed with the Podiatry team who states debridement/amputation palliative to assist with getting the bleeding to stop. Feels that xray changes are likely secondary to metastatic disease and not osteomyelitis. ESR and CRP are elevated, likely due to malignancy. Status post amputation of right toe #3 05/24/[address] Montesinos. Qualifiers: Laterality: right Non-pressure ulcer stage: limited to breakdown of skin Qualified Code(s): L97.511 - Non-pressure chronic ulcer of other part of right foot limited to breakdown of skin SNOMED Code(s): 843695949 (2) Pneumonia Status: Acute Location: RADHAMES. Causative organism: Unclear. CT chest 05/17/19 showed new areas of dense consolidation in the left upper lobe and left lower lobe centrally that may be secondary to post-obstructive PNA vs. underlying metastatic disease. CXR shows findings concerning for PNA in the RADHAMES. The patient states he does sometimes choke when he eats, so aspiration is on the differential as well. No URI symptoms. MRSA screen positive. Blood cultures drawn 05/24/19 are NGTDx 2 sets. Strep pneumo and Legionella UATs negative. Currently on Vanc, cefepime, and flagyl (day 4). Qualifiers: Pneumonia type: due to unspecified organism Laterality: unspecified laterality Lung location: unspecified part of lung Qualified Code(s): J18.9 - Pneumonia, unspecified organism SNOMED Code(s): 126727688 (3) Pleural effusion Status: Acute CT chest 05/17/19 showed an enlarging left pleural effusion. Status post thoracentesis 05/24/19 by interventional radiology. Details of thoracentesis not immediately available. Cultures and cytology are pending. Appears exudative per Light's criteria. Patient reports improvement in breathing since thoracentesis. Cultures are no growth. Gram stain is negative. Cytology negative for malignancy. SNOMED Code(s): 28267709 (4) Acute kidney injury Status: Acute Etiology unclear. Continue to trend. Further workup and management per the primary team. SNOMED Code(s): 28832745, 68838865 (5) Metastatic renal cell carcinoma Status: Chronic Diagnosed in [address] of the abdomen and pelvis showed a large mass arising from the left kidney. Status post left kidney total nephrectomy 03/18/16. Developed mediastina adenopathy. Probable biopsy of lymphadenopathy was nondiagnostic. Studies in February 2017 showed increased in the size of the right paratracheal lymph node and increasing left lower lobe pulmonary nodule right lower lobe pulm onary nodule and a right apical lung nodule as well as a soft tissue nodule in the left periaortic region increased in size with concern for progressive metastatic CA. He started pazopanib--02/28, subsequently, keytruda 05/31. Then he started cabozantinib He restarted cabozantinib 20 mg daily dose on 09/2017. He developed metastatic bony lesions, increase in hilar mass-s/p RT to both sacrum and rt hilum. Started everlimus/lenvatinib 12/31-03/02. Relapsed at multiple cutaneous sitess. MRI brain 03/22/19. Bilateral tiny cerebellar tiny lesions, fullness in sella. Started on nivolumab/ipilumab 03/02-current, and s/p RT to scalp lesions and nasal/sinus--due to bleeding. CT chest, abdomen, and pelvis 05/17/19 showed significant progression of metastatic disease seen within the chest, abdomen, and pelvis with compared to prior CT on 02/18/19. Hematology/Oncology consulted. Qualifiers: Laterality: left Qualified Code(s): C64.2 - Malignant neoplasm of left kidney, except renal pelvis SNOMED Code(s): 081280618 (6) Skin lesion Status: Chronic Multiple skin lesions due to mets. SNOMED Code(s): 40877971 (7) Status post nephrectomy Status: Acute SNOMED Code(s): 453657003, 082444425 (8) Diabetes Status: Chronic Qualifiers: Diabetes mellitus type: type 2 Diabetes mellitus extermination supervisor insulin use: without residential use Diabetes mellitus complication status: without complication Qualified Code(s): E11.9 - Type 2 diabetes mellitus without complications SNOMED Code(s): 74738234 - Recommendations Recommendations: Await pleural fluid cultures to finalize. Await blood cultures to finalize. Send sputum for culture if the patient is able to provide an adequate specimen. Wound care/activity per the Podiatry team. Await further recommendations from the Hem/Onc team. Continue Vancomycin IV. Pharmacy to dose. Goal trough ~15. Continue cefepime 2 grams IV Q12H. Continue flagyl 500mg TID, but can transition to PO. Duration of treatment depends on the clinical picture. Can transition to PO Avelox and doxycycline when ready for discharge to complete a total of 10 days. Treat through 06/02/19. Monitor renal function and for drug toxicity and dose-adjust antibiotics. Consult Discharge Plan - Plan Instructions: Toe Amputation (DC) Referrals: Sandeep Montesinos DPM [Partnered Physician] - 05/30/19 1:30 pm Angelo Allen DO [Primary Care Provider] - 06/01/19 1:00 pm Prescriptions: Moxifloxacin HCl [Avelox] 400 mg PO DAILY 7 Days #7 tablet Prescription Printed Doxycycline 100 mg PO BID 7 Days #14 capsule Prescription Printed - Attending Attestation I have personally performed a face to face evaluation on this patient. I have reviewed and agree with the care plan. History and Exam by me shows: Assessment and plan: 1.Toe ulcer 2.HCAP left upper lobe causative organism not clear concern for aspiration 3.Acute kidney injury 4.Metastatic renal cell carcinoma 5.Status post nephrectomy 6.Diabetes mellitus type 2 Recommendations: Await cultures to finalize Continue vancomycin Continue cefepime Continue Flagyl Goal vancomycin trough around 15 Duration of treatment depends on clinical picture but we can probably switch him to oral doxycycline plus oral Avelox on discharge to complete a 10 day course Monitor labs and for drug toxicity
[2019-05-27 11:18] VITALS: BP 116/69
[2019-05-27] MEDS: Cefepime HCl 2,000 MG in Water for inj. (sterile) 20 ML IVP SCH (11:29)
--- NOTE | 2019-05-27 13:30 | Discharge Summary ---
- NOTES TO OUTPATIENT PROVIDER Notes to Outpatient Provider: Patient with history of renal cancer stage IV presented to the hospital with metastasis with bleeding right toe. Podiatry was consulted and patient is status post amputation of right third toe. Hospital course was complicated by him developing pleural effusion he is status post thoracentesis and also pneumonia which is likely postobstructive. Antibiotics were started and infectious disease consult was placed. Patient will get discharged on additional 7 day course of antibiotics. Patient to take Avelox 400 mg daily for 7 days and doxycycline 100 mg twice daily for 7 days. Follow up on blood culture and anearobic culture and wound pathology report outpatient. Orders not resulted at time of discharge: Pending orders 05/24/19 10:21 Culture,Blood [BC] Stat 05/24/19 13:40 Culture,Anaerobic [RM] Routine 05/24/19 16:41 Surgical Pathology [PTH] Routine Estimated PT Needs at Discharge: Home Health Date of Encounter: 05/27/19 Time of Encounter: 13:35 - Discharge Diagnosis (1) Metastatic renal cell carcinoma Priority: Primary Status: Chronic Qualifiers: Laterality: left Qualified Code(s): C64.2 - Malignant neoplasm of left kidney, except renal pelvis (2) Pleural effusion Priority: Secondary Status: Acute (3) Postobstructive pneumonia Priority: Secondary Status: Acute (4) Acute kidney injury Priority: Secondary Status: Acute (5) Hypothyroidism Priority: Secondary Status: Chronic Qualifiers: Hypothyroidism type: unspecified Qualified Code(s): E03.9 - Hypothyroidism, unspecified Hospital course: Mr. Myers is a 58 year old male with history of renal cancer stage IV presented to the hospital with metastasis with bleeding right toe. Podiatry was consulted and patient is status post amputation of right third toe. Hospital course was complicated by him developing pleural effusion he is status post thoracentesis and also pneumonia which is likely postobstructive. Antibiotics were started and infectious disease consult was placed. Patient will get discharged on additional 7 day course of antibiotics. Patient to take Avelox 400 mg daily for 7 days and doxycycline 100 mg twice daily for 7 days. Follow up on blood culture and anearobic culture and wound pathology report outpatient. Discharge discussed with: patient, family, nurse, social work, case management, distributor sales consultant - Time Spent with Patient Total time spent providing and/or coordinating discharge services: 45 Time spent: Greater than 30 minutes - Discharge Medications Prescriptions: New Moxifloxacin HCl [Avelox] 400 mg PO DAILY 7 Days #7 tablet Doxycycline 100 mg PO BID 7 Days #14 capsule Continued Ranitidine HCl [Acid Learn To Swim Instructor] 150 mg PO DAILY Hydralazine HCl 50 mg PO BID Simvastatin [Zocor] 40 mg PO HS Metoprolol Tartrate [Lopressor] 50 mg PO BID Levothyroxine Sodium [Levo-T] 150 mcg PO DAILY dilTIAZem HCl [Diltiazem HCl] 120 mg PO DAILY Calcium Carbonate/Vitamin D3 [Calcium 600 + Vit D Tablet] 1 tab PO DAILY Amlodipine Besylate 10 mg PO DAILY Aspirin [Lo-Dose Aspirin EC] 81 mg PO DAILY Furosemide [Lasix] 20 mg PO DAILY Potassium Chloride [K-Tab ER] 20 meq PO DAILY Home Medications: Hydralazine HCl 50 mg PO BID 02/11/18 [History] Metoprolol Tartrate [Lopressor] 50 mg PO BID 02/11/18 [History] Ranitidine HCl [Acid Learn To Swim Instructor] 150 mg PO DAILY 02/11/18 [History] Simvastatin [Zocor] 40 mg PO HS 02/11/18 [History] Levothyroxine Sodium [Levo-T] 150 mcg PO DAILY 03/15/19 [History] dilTIAZem HCl [Diltiazem HCl] 120 mg PO DAILY 03/16/19 [History] Calcium Carbonate/Vitamin D3 [Calcium 600 + Vit D Tablet] 1 tab PO DAILY 05/09/19 [History] Amlodipine Besylate 10 mg PO DAILY 05/23/19 [History] Aspirin [Lo-Dose Aspirin EC] 81 mg PO DAILY 05/23/19 [History] Furosemide [Lasix] 20 mg PO DAILY 05/23/19 [History] Potassium Chloride [K-Tab ER] 20 meq PO DAILY 05/23/19 [History] Doxycycline 100 mg PO BID 7 Days #14 capsule 05/27/19 [Rx] Moxifloxacin HCl [Avelox] 400 mg PO DAILY 7 Days #7 tablet 05/27/19 [Rx] Allergies/Adverse Reactions: Allergy/AdvReac Type Severity Reaction Status Date / Time adhesive tape Allergy Rash Verified 05/23/19 20:51 Penicillins [PCN] Allergy Hives Verified 05/23/19 20:51 Date of admission: 05/24/19 13:12 Primary care physician: Angelo Allen DO Consults: 05/23/19 16:34 Consult to Oncology [CONS] Stat Consulting Provider: Oncology [facility] [place] Reason for Consult: renal cell ca Time Notified: 16:34 Call Completed: No Consult to Podiatry [CONS] Stat Consulting Provider: Podiatry [facility] Reason for Consult: toe wound Time Notified: 16:34 Call Completed: Yes 05/23/19 23:06 Consult to Cardiology [CONS] Routine Comment: Consulting Provider: Cardiology [facility] Reason for Consult: Presents for right toe lesion, plan for possible amputation tomorrow with Podiatry. Hx of afib with recently developed pitting lower extremity edema and dypnea worse than baseline. Echo ordered. Please see for cardiac clearance for surgery. Call Completed: No 05/24/19 07:54 Consult to Pulmonology [CONS] Routine Consulting Provider: [facility] [place] Reason for Consult: Moderate to large pleural effusion on CT chest, was planned for thoracocentesis Call Completed: No 05/24/19 09:37 Consult to Infectious Diseases [CONS] Routine Consulting Provider: Infectious Disease [place] Reason for Consult: possible foot OM Call Completed: No Discharging clinician: Hernandez Yarbrough Fang - Constitutional Vitals: Temp Pulse Resp BP Pulse Ox 98.2 F 89 16 116/69 95 05/27/19 11:17 05/27/19 11:17 05/27/19 11:17 05/27/19 11:17 05/27/19 11:17 General appearance: Present: cooperative, A&O X 3 Exam: General: Patient is alert, oriented 3. Head: Atraumatic, scars from previous metastatic lesion removal. Respiratory: Mild left-sided basilar rales Cardiovascular: Regular rate and regular rhythm.. No murmurs, rubs, or gallops. GI: Soft, nondistended, normal bowel sounds. Extremities:No joint swelling, pedal edema, or tenderness noted. Neurological: Alert, oriented 3, no focal deficits. Psychiatric: normal affect, normal mood. Skin: Cutaneous lesions on his chest, though in the left upper quadrant, legs representing metastatic disease. Dressing placed on the right foot and left.foot - Patient Status Disposition: Home Health Service Condition: Critical Overall status at discharge: patient is progressing back to baseline - Discharge Instructions Follow Up With: Angelo Allen DO [Primary Care Provider] - - Diet and Activity Activity: as per physical therapy, increase activity as tolerated Diet: diabetic diet, low salt diet
--- NOTE | 2019-05-27 13:41 | Physician Discharge Referral ---
Home Health/Hosp Referral Info Transfer to: Home Health Provider in Charge Post Discharge: PCP - Diagnosis (1) Metastatic renal cell carcinoma Priority: Primary Status: Chronic (2) Pleural effusion Priority: Secondary Status: Acute (3) Postobstructive pneumonia Priority: Secondary Status: Acute (4) Acute kidney injury Priority: Secondary Status: Acute (5) Hypothyroidism Priority: Secondary Status: Chronic - Respiratory Orders Smoking Cessation: Smoking cessation has been advised. For more information, call the [place] Tobacco Quit Line at 1-207-VHSM-NOW. - Diet/Nutrition Diet/Nutrition Orders: No Added Salt (SALOMÓN), Cardiac - Services Needed Following services are medically necessary services: Nursing, Home Health Aide - Transfer Medications Prescriptions: Moxifloxacin HCl [Avelox] 400 mg PO DAILY 7 Days #7 tablet Doxycycline 100 mg PO BID 7 Days #14 capsule Home Medications: Hydralazine HCl 50 mg PO BID 02/11/18 [History] Metoprolol Tartrate [Lopressor] 50 mg PO BID 02/11/18 [History] Ranitidine HCl [Acid Hydrogeology Professor] 150 mg PO DAILY 02/11/18 [History] Simvastatin [Zocor] 40 mg PO HS 02/11/18 [History] Levothyroxine Sodium [Levo-T] 150 mcg PO DAILY 03/15/19 [History] dilTIAZem HCl [Diltiazem HCl] 120 mg PO DAILY 03/16/19 [History] Calcium Carbonate/Vitamin D3 [Calcium 600 + Vit D Tablet] 1 tab PO DAILY 05/09/19 [History] Amlodipine Besylate 10 mg PO DAILY 05/23/19 [History] Aspirin [Lo-Dose Aspirin EC] 81 mg PO DAILY 05/23/19 [History] Furosemide [Lasix] 20 mg PO DAILY 05/23/19 [History] Potassium Chloride [K-Tab ER] 20 meq PO DAILY 05/23/19 [History] Doxycycline 100 mg PO BID 7 Days #14 capsule 05/27/19 [Rx] Moxifloxacin HCl [Avelox] 400 mg PO DAILY 7 Days #7 tablet 05/27/19 [Rx] Allergies/Adverse Reactions: Allergy/AdvReac Type Severity Reaction Status Date / Time adhesive tape Allergy Rash Verified 05/23/19 20:51 Penicillins [PCN] Allergy Hives Verified 05/23/19 20:51 Certification: Further, I certify that my clinical findings support that this patient is homebound (i.e. absences from home require considerable and taxing effort and are for medical reasons or shinto services or infrequently or short duration when for other reasons) because: Homebound Reason: Patient requires assistance of a person or device to safely leave home Attestation: My signature below is to certify that this patient is under my care and that I, or nurse practitioner, or a physician's oral surgery assistant working with me, has a [id number] encounter with this patient.
[2019-05-27] MEDS ORDERED: Aminoglycoside Consult 1 EACH MC ONE (15:50)
== END 2019-05-27 15:51 | disposition home health service (06) | DRG 579 ==
LOC: 3ANU 14:38 → EMEROOARM 14:38 → SUATTDRO 18:43 → 3ANU 19:40 → SUATTDRO 05-24 13:12 → 3ANU 05-25 01:12
PROVIDERS: ADMIT Student in an Organized Health Care Education/Training Program; ATTEND Family Medicine